=== PATIENT | male | born 1980 | race Caucasian/White ===

== ENCOUNTER → 2016-08-16 | Outpatient (REF) | payer BC ==
[~2016-08-16] MED LIST: AMBI10TA OR; MECL-68 PO; SIMV20TA2 OR; SING10TA31 OR; veramyst
[2016-08-16 11:40] LABS: ALBUMIN 4.2 GM/DL (3.2-5.2); ALBUMIN/GLOBULIN RATIO 1.35 (1.00-1.93); ALKALINE PHOSPHATASE 93 U/L (45-117); ALT/SGPT 48 U/L (12-78); ANION GAP 5 MEQ/L (8-16); AST/SGOT 28 U/L (15-37); BILIRUBIN,TOTAL 0.6 MG/DL (0.2-1.0); BLOOD UREA NITROGEN 14 MG/DL (7-18); CALCIUM LEVEL 9.4 MG/DL (8.5-10.1); CARBON DIOXIDE LEVEL 34 MEQ/L (21-32); CHLORIDE LEVEL 105 MEQ/L (98-107); CHOLESTEROL LEVEL 206 MG/DL (<200); CREATININE FOR GFR 1.02 MG/DL (0.70-1.30); GLOMERULAR FILTRATION RATE > 60.0 (>60); GLUCOSE, FASTING 86 MG/DL (70-105); POTASSIUM SERUM 4.7 MEQ/L (3.5-5.1); SODIUM LEVEL 144 MEQ/L (136-145); TOTAL PROTEIN 7.3 GM/DL (6.4-8.2); TRIGLYCERIDES LEVEL 94 MG/DL (<150)
== END ==
LOC: M SFHCCLAY 07:09
PROVIDERS: ATTEND Family Medicine
DX: E78.2 Mixed hyperlipidemia (principal)

== ENCOUNTER → 2017-08-24 | Outpatient (REF) | payer BC ==
[2017-08-24 14:13] LABS: ALBUMIN 4.2 GM/DL (3.2-5.2); ALBUMIN/GLOBULIN RATIO 1.31 (1.00-1.93); ALKALINE PHOSPHATASE 77 U/L (45-117); ALT/SGPT 48 U/L (12-78); ANION GAP 4 MEQ/L (8-16); AST/SGOT 24 U/L (7-37); BILIRUBIN,TOTAL 0.6 MG/DL (0.2-1.0); BLOOD UREA NITROGEN 18 MG/DL (7-18); CALCIUM LEVEL 9.4 MG/DL (8.5-10.1); CARBON DIOXIDE LEVEL 34 MEQ/L (21-32); CHLORIDE LEVEL 103 MEQ/L (98-107); CHOLESTEROL LEVEL 166 MG/DL (<200); CHOLESTEROL RISK RATIO 3.772 (<5); CREATININE FOR GFR 0.97 MG/DL (0.70-1.30); GLOMERULAR FILTRATION RATE > 60.0 (>60); GLUCOSE, FASTING 83 MG/DL (70-105); HDL CHOLESTEROL 44 MG/DL (>40); LDL CHOLESTEROL 101.4 MG/DL (<100); NON-HDL-C 122 MG/DL; POTASSIUM SERUM 4.9 MEQ/L (3.5-5.1); SODIUM LEVEL 141 MEQ/L (136-145); TOTAL PROTEIN 7.4 GM/DL (6.4-8.2); TRIGLYCERIDES LEVEL 103 MG/DL (<150)
== END ==
LOC: M SFHCLERA 07:41
DX: E78.2 Mixed hyperlipidemia (principal)
CPT/HCPCS: 80053

== ENCOUNTER → 2018-08-30 | Outpatient (REF) | payer BC ==
[2018-08-30 12:36] LABS: ALBUMIN 4.3 GM/DL (3.2-5.2); ALT/SGPT 42 U/L (12-78); BILIRUBIN,TOTAL 0.6 MG/DL (0.2-1.0); BLOOD UREA NITROGEN 16 MG/DL (7-18); CARBON DIOXIDE LEVEL 31 MEQ/L (21-32); CHLORIDE LEVEL 103 MEQ/L (98-107); CHOLESTEROL LEVEL 208 MG/DL (<200); CHOLESTEROL RISK RATIO 3.525 (<5); CREATININE FOR GFR 0.98 MG/DL (0.70-1.30); GLOMERULAR FILTRATION RATE > 60.0 (>60); GLUCOSE, FASTING 85 MG/DL (70-100); HDL CHOLESTEROL 59 MG/DL (>40); LDL CHOLESTEROL 133 MG/DL (<100); NON-HDL-C 149 MG/DL; POTASSIUM SERUM 4.1 MEQ/L (3.5-5.1); SODIUM LEVEL 140 MEQ/L (136-145); TOTAL PROTEIN 7.4 GM/DL (6.4-8.2); TRIGLYCERIDES LEVEL 81 MG/DL (<150)
== END ==
LOC: M SFHCCLAY 07:16
PROVIDERS: ATTEND Family Medicine
DX: E78.2 Mixed hyperlipidemia (principal)

== ENCOUNTER → 2018-11-25 | Outpatient (REF) | payer BC | LOC: M LAB REF 20:38 | PROVIDERS: ATTEND Otolaryngology | DX: L72.0 Epidermal cyst (principal) ==

== ENCOUNTER → 2019-02-04 | Outpatient (CLI) | payer BC ==
--- NOTE | 2019-02-04 08:27 | REP ---
Clinical: Epigastric pain. Technique: Real time sheppard scale and color evaluation using curved array transducer. Findings: Liver is relatively normal in contour and parenchymal echogenicity. There is a 2.6 x 2.0 x 2.0 cm hyperechoic mass along the posterior right hepatic lobe suggesting hemangioma. Pancreas is normal in appearance and echotexture. Gallbladder includes 4.6 mm echogenic focus along the anterior wall without shadowing suggesting small polyp. No gallbladder wall thickening, gallstones, or pericholecystic fluid is appreciated. No biliary ductal dilatation is appreciated and the common bile duct measures 2.1 mm diameter. Right kidney is normal in reniform shape without hydronephrosis and measures 11.9 x 5.5 x 3.6 cm. No ascites in the visualized right upper quadrant. Impression: 1. Suspected small 4.6 mm benign appearing gallbladder polyp. 2. 2.6 cm presumed hemangioma in the right lobe of the liver. Consider pre and postcontrast CT of the abdomen for confirmation if necessary. Electronically Signed by Jarrod Matthew MD 02/04/2019 08:19 A
== END ==
LOC: M RAD 07:06
PROVIDERS: ATTEND Family Medicine
DX: R10.13 Epigastric pain (principal); K82.8 Other specified diseases of gallbladder; K76.89 Other specified diseases of liver

== ENCOUNTER → 2019-02-18 | Outpatient (CLI) | payer BC ==
[~2019-02-18] MED LIST changes: +GASTROGRAFIN SOLUTION 30ML (Q9963) As Ordered ONE; +ISOVUE-370 76% 100ML VIAL (Q9967) As Ordered ONE; -MECL-68 PO; +MECL1TAB31 PO
--- NOTE | 2019-02-18 19:43 | REP ---
CT ABDOMEN AND PELVIS WITH ORAL AND IV CONTRAST, CT ABDOMEN WITHOUT IV CONTRAST: TECHNIQUE: Axial noncontrast images through the abdomen followed by contrast-enhanced images through the abdomen and pelvis using 100 mL Isovue 370 intravenous contrast material, with coronal and sagittal reformations. Visualized lung bases are clear. The liver demonstrates a nodule in the posterior segment of right lobe at the site of the hyperechoic nodule by ultrasound 02/04/2019. This demonstrates delayed peripheral nodule enhancement with gradual filling in of contrast consistent with a benign hemangioma. No other liver is seen. Spleen, adrenals, pancreas and kidneys are unremarkable. There is no hydronephrosis. There is no abdominal aortic aneurysm. There is no adenopathy. There is no free air or free fluid. No bowel wall thickening is seen. The patient has had a prior appendectomy. No pelvic mass is seen. Urinary bladder is mild to moderately distended and grossly unremarkable. IMPRESSION: The nodule in the posterior right lobe of the liver seen by ultrasound corresponds to a hemangioma by CT. No other abnormalities are detected. Electronically Signed by Danilo Haile MD 02/20/2019 11:36 A
== END ==
LOC: M RAD 16:04
PROVIDERS: ATTEND Family Medicine
DX: R93.2 Abnormal findings on diagnostic imaging of liver and biliary tract (principal); R10.13 Epigastric pain; D18.03 Hemangioma of intra-abdominal structures
CPT/HCPCS: 74178; Q9963; Q9967

== ENCOUNTER → 2019-02-26 | Outpatient (REF) | payer BC ==
[~2019-02-26] MED LIST changes: -GASTROGRAFIN SOLUTION 30ML (Q9963) As Ordered ONE; -ISOVUE-370 76% 100ML VIAL (Q9967) As Ordered ONE; +MECL-68 PO; -MECL1TAB31 PO
[2019-02-26 16:47] LABS: ALBUMIN 4.2 GM/DL (3.2-5.2); ALT/SGPT 33 U/L (12-78); AMYLASE 73 U/L (25-115); BILIRUBIN,TOTAL 0.3 MG/DL (0.2-1.0); BLOOD UREA NITROGEN 12 MG/DL (7-18); CALCIUM LEVEL 9.4 MG/DL (8.5-10.1); CARBON DIOXIDE LEVEL 31 MEQ/L (21-32); CHLORIDE LEVEL 106 MEQ/L (98-107); CREATININE FOR GFR 0.95 MG/DL (0.70-1.30); GLOMERULAR FILTRATION RATE > 60.0 (>60); GLUCOSE, FASTING 90 MG/DL (70-100); LIPASE 114 U/L (73-393); POTASSIUM SERUM 4.2 MEQ/L (3.5-5.1); SODIUM LEVEL 143 MEQ/L (136-145); TOTAL PROTEIN 7.3 GM/DL (6.4-8.2)
[2019-02-26 16:50] LABS: BASO % 0.7 % (0.0-1.0); EOS # 0.2 10^3/uL (0.0-0.50); EOS % 3.2 % (0.0-3.0); HEMATOCRIT 44.6 % (42.0-52.0); HEMOGLOBIN 15.3 g/dl (13.5-17.5); LYMPH # 1.7 10^3/uL (1.5-4.5); LYMPH % 29.7 % (24.0-44.0); MEAN CORPUSCULAR HEMOGLOBIN 29.9 pg (27.0-33.0); MEAN CORPUSCULAR HGB CONC 34.3 g/dl (32.0-36.5); MEAN CORPUSCULAR VOLUME 87.3 fl (80.0-96.0); MONO # 0.3 10^3/uL (0.0-0.8); MONO % 5.7 % (0.0-5.0); NEUTROPHILS # 3.4 10^3/uL (1.8-7.7); NEUTROPHILS % 60.5 % (36.0-66.0); PLATELET COUNT, AUTOMATED 190 10^3/uL (150-450); RED BLOOD COUNT 5.11 10^6/uL (4.30-6.10); WHITE BLOOD COUNT 5.7 10^3/uL (4.0-10.0)
== END ==
LOC: M SFHCCLAY 12:10
PROVIDERS: ATTEND Family Medicine
DX: R10.13 Epigastric pain (principal)

== ENCOUNTER → 2019-03-06 | Outpatient (CLI) | payer BC ==
[~2019-03-06] MED LIST changes: +E-Z-GAS II EFFERVESCENT PACKET (SODIUM BICARB./CITRIC ACID/SIMETHICONE) As Ordered ONE; +E-Z-HD 98% w/w 340GM SUSP BTL As Ordered ONE; +E-Z-PAQUE 96% w/w SUSP 176GM BTL As Ordered ONE
--- NOTE | 2019-03-06 17:11 | REP ---
UPPER GI AIR CONTRAST AND SMALL BOWEL FOLLOW THROUGH The procedure was performed under the direct supervision of Dr. Olsen. The images were reviewed with Dr. 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 The intestinal gas pattern is non-specific. Liquid barium and gas producing crystals were given in the erect position as well as liquid barium in the prone oblique position in order to perform a double contrast upper GI examination. Additionally liquid barium was given at the end of the examination in order to perform a small bowel follow through. The oral and pharyngeal stages of deglutition are unremarkable. Esophageal transport is prompt and efficient and there is no esophagitis, stricture, mucosal ring or hiatal hernia. There is gastroesophageal reflux demonstrated to the level of the thoracic inlet. The stomach swain are normally outlined . The rugal folds are smooth and regular. There is no gastritis neoplasm or ulcer disease. The duodenal swain are normally outlined . The mucosal folds are smooth and regular. There is no duodenitis pancreatitis peptic ulcer disease or neoplasm. The visualized portion of the proximal small bowel appears normal in course and caliber. The barium column was followed through the small bowel to the terminal ileum. Small bowel transit time is approximately 90 minutes . During fluoroscopy gentle palpation shows all loops are freely movable and pliable. There are no fixed or angulated loops. The small bowel mucosal pattern is normal in course and caliber. There is no transition to suggest a partial small-bowel obstruction. Spot filming of the terminal ileum shows it to be unremarkable. Impression: There is gastroesophageal reflux demonstrated to the level of the thoracic inlet. Otherwise, unremarkable double contrast upper GI examination and small bowel follow-through. 2.1 minutes of fluoro time was utilized for this procedure. Reviewed by RO Sewell 03/06/2019 04:50 P Electronically Signed by Danilo Olsen MD 03/06/2019 05:02 P
== END ==
LOC: M RAD 08:08
PROVIDERS: ATTEND Family Medicine
DX: R10.13 Epigastric pain (principal)

== ENCOUNTER → 2019-08-29 | Outpatient (REF) | payer BC ==
[~2019-08-29] MED LIST changes: -E-Z-GAS II EFFERVESCENT PACKET (SODIUM BICARB./CITRIC ACID/SIMETHICONE) As Ordered ONE; -E-Z-HD 98% w/w 340GM SUSP BTL As Ordered ONE; -E-Z-PAQUE 96% w/w SUSP 176GM BTL As Ordered ONE; -MECL-68 PO; +MECL1TAB31 PO
[2019-08-29 12:09] LABS: ALT/SGPT 40 U/L (12-78); BILIRUBIN,TOTAL 0.6 MG/DL (0.2-1.0); BLOOD UREA NITROGEN 14 MG/DL (7-18); CALCIUM LEVEL 9.3 MG/DL (8.5-10.1); CARBON DIOXIDE LEVEL 34 MEQ/L (21-32); CHLORIDE LEVEL 103 MEQ/L (98-107); CHOLESTEROL LEVEL 179 MG/DL (<200); CHOLESTEROL RISK RATIO 3.729 (<5); CREATININE FOR GFR 0.98 MG/DL (0.70-1.30); GLOMERULAR FILTRATION RATE > 60.0 (>60); GLUCOSE, FASTING 82 MG/DL (70-100); HDL CHOLESTEROL 48 MG/DL (>40); LDL CHOLESTEROL 116 MG/DL (<100); NON-HDL-C 131 MG/DL; POTASSIUM SERUM 4.7 MEQ/L (3.5-5.1); SODIUM LEVEL 140 MEQ/L (136-145); TOTAL PROTEIN 6.9 GM/DL (6.4-8.2); TRIGLYCERIDES LEVEL 75 MG/DL (<150)
== END ==
LOC: M SFHCLERA 07:37
PROVIDERS: ATTEND Family Medicine
DX: E78.2 Mixed hyperlipidemia (principal)

== ENCOUNTER → 2020-09-10 | Outpatient (REF) | payer BC ==
[2020-09-10 11:48] LABS: ALBUMIN 4.2 GM/DL (3.2-5.2); ALT/SGPT 57 U/L (12-78); BILIRUBIN,TOTAL 0.6 MG/DL (0.2-1.0); BLOOD UREA NITROGEN 19 MG/DL (7-18); CALCIUM LEVEL 9.5 MG/DL (8.5-10.1); CARBON DIOXIDE LEVEL 35 MEQ/L (21-32); CHLORIDE LEVEL 103 MEQ/L (98-107); CHOLESTEROL LEVEL 212 MG/DL (<200); CREATININE FOR GFR 1.02 MG/DL (0.70-1.30); GLOMERULAR FILTRATION RATE > 60.0 (>60); GLUCOSE, FASTING 86 MG/DL (70-100); HDL CHOLESTEROL 53 MG/DL (>40); LDL CHOLESTEROL 143 MG/DL (<100); NON-HDL-C 159 MG/DL; POTASSIUM SERUM 4.7 MEQ/L (3.5-5.1); SODIUM LEVEL 141 MEQ/L (136-145); TRIGLYCERIDES LEVEL 82 MG/DL (<150)
== END ==
LOC: M SFHCCLAY 07:22
PROVIDERS: ATTEND Family Medicine
DX: E78.2 Mixed hyperlipidemia (principal)

== ENCOUNTER 2020-10-10 20:31 | Inpatient (IN) | payer BC ==
[~2020-10-10] VITALS: Ht 182.9 cm; Wt 77.5 kg
[2020-10-10] VITALS (15 sets, daily range): BP systolic 140–170; BP diastolic 71–105
[2020-10-10] MEDS ORDERED: PANT40TA29 PO (20:44)
--- NOTE | 2020-10-10 20:59 | REPVR ---
PROCEDURE INFORMATION: Exam: XR Chest Exam date and time: 10/10/2020 8:52 PM Age: 40 years old Clinical indication: Shortness of breath; Chest pain; Additional info: SOB TECHNIQUE: Imaging protocol: XR of the chest Views: 2 views. COMPARISON: No relevant prior studies available. FINDINGS: Lungs: Mild left base secondary atelectasis. Pleural spaces: Moderate left pneumothorax. The lung is retracted approximately the 6.3 cm from the osseous apex of the left hemithorax. Heart/Mediastinum: Unremarkable. No cardiomegaly. Bones/joints: Slight anterior wedge configuration of several lower thoracic segments which appear to be chronic. IMPRESSION: 1. Moderate left pneumothorax which is estimated at 25-30% with secondary left base atelectasis. 2. Otherwise negative chest. Electronically signed by: Paul Puente On 10/10/2020 20:59:45 PM
[2020-10-10] MEDS ORDERED: SIMV10TA21 PO (21:03)
[2020-10-10] MEDS ORDERED: NORCO, ANEXSIA 5/325MG TABLET (HYDROcodone/ACETAMINOPHEN) PO PRN (21:10)
[2020-10-10] MEDS ORDERED: BISACODYL 10 MG SUPP PR PRN (21:10)
[2020-10-10] MEDS ORDERED: KCL 20MEQ IN D5/NS 1000ML 1,000 ML IV SCH (21:10)
[2020-10-10] MEDS ORDERED: LEVALBUTEROL 1.25 MG/0.5 ML CONCENTRATE NEB NEB PRN (21:10)
[2020-10-10 21:14] LABS: BASO # 0.1 10^3/uL (0.0-0.2); BASO % 0.8 % (0.0-1.0); EOS # 0.3 10^3/uL (0.0-0.5); EOS % 3.5 % (0.0-3.0); HEMATOCRIT 42.7 % (42.0-52.0); HEMOGLOBIN 14.6 g/dl (13.5-17.5); LYMPH # 1.9 10^3/uL (1.5-5.0); LYMPH % 26.8 % (24.0-44.0); MEAN CORPUSCULAR HEMOGLOBIN 29.6 pg (27.0-33.0); MEAN CORPUSCULAR HGB CONC 34.2 g/dl (32.0-36.5); MEAN CORPUSCULAR VOLUME 86.6 fl (80.0-96.0); MONO # 0.4 10^3/uL (0.0-0.8); MONO % 6.1 % (2.0-8.0); NEUTROPHILS # 4.4 10^3/uL (1.5-8.5); NEUTROPHILS % 62.7 % (36.0-66.0); PLATELET COUNT, AUTOMATED 177 10^3/uL (150-450); RED BLOOD COUNT 4.93 10^6/uL (4.30-6.10); WHITE BLOOD COUNT 7.1 10^3/uL (4.0-10.0)
[2020-10-10] MEDS ORDERED: MIDAZOLAM INJ 2MG/2ML VIAL (J2250 PER 1MG) As Ordered ONE ×2 (21:29→21:31)
[2020-10-10] MEDS ORDERED: flumazeniL 0.5 MG/5 ML VIAL As Ordered ONE (21:33)
[2020-10-10] MEDS ORDERED: LIDOCAINE 1% MDV 20ML VIAL As Ordered ONE (21:34)
[2020-10-10 21:37] LABS: ABG HCO3 26.1 MEQ/L (22.0-26.0); ABG O2 SATURATION 95.5 % (95.0-99.0); ABG PARTIAL PRESSURE CO2 39.1 mmHg (35.0-45.0); ABG PARTIAL PRESSURE O2 75.3 mmHg (75.0-100.0); ABG STANDARD HCO3 26.2 MEQ/L (22.0-26.0); ABG TOTAL CO2 27.3 MEQ/L (22.0-29.0); ABG pH (ARTERIAL) 7.443 UNITS (7.350-7.450)
[2020-10-10 21:44] LABS: ALBUMIN 4.1 GM/DL (3.2-5.2); ALT/SGPT 44 U/L (12-78); BILIRUBIN,DIRECT 0.1 MG/DL (0.0-0.2); BILIRUBIN,TOTAL 0.5 MG/DL (0.2-1.0); BLOOD UREA NITROGEN 20 MG/DL (7-18); CARBON DIOXIDE LEVEL 30 MEQ/L (21-32); CHLORIDE LEVEL 104 MEQ/L (98-107); CREATININE FOR GFR 1.21 MG/DL (0.70-1.30); GLOMERULAR FILTRATION RATE > 60.0 (>60); GLUCOSE, FASTING 140 MG/DL (70-100); POTASSIUM SERUM 3.6 MEQ/L (3.5-5.1); SODIUM LEVEL 140 MEQ/L (136-145); TOTAL PROTEIN 7.1 GM/DL (6.4-8.2)
[2020-10-10 21:51] LABS: RSV AMPLIFICATION NEGATIVE (NEGATIVE)
[2020-10-10] MEDS ORDERED: PILL CUTTER 1 EACH XX PRN (21:55)
--- NOTE | 2020-10-10 22:40 | REPVR ---
PROCEDURE INFORMATION: Exam: XR Chest Exam date and time: 10/10/2020 10:32 PM Age: 40 years old Clinical indication: Device placement; Chest tube; Additional info: Post chest tube placement TECHNIQUE: Imaging protocol: XR of the chest Views: 1 view. COMPARISON: CR Chest, 2 view PA, Lat 10/10/2020 8:43 PM FINDINGS: Tubes, catheters and devices: Interval placement of a left chest tube into the left apex. Lungs: Persistent mild left base atelectasis which may be slightly decreased. Pleural spaces: Resolution of left pneumothorax since the prior study. Heart/Mediastinum: Unremarkable. No cardiomegaly. Bones/joints: Unremarkable. IMPRESSION: 1. Interval placement of a left chest tube since a study done earlier in the day with resolution of left pneumothorax. 2. Mild left base atelectasis which may be slightly decreased since the prior study. Electronically signed by: Paul Puente On 10/10/2020 22:40:15 PM
[2020-10-10] MEDS: PERCOCET 5MG/325MG TAB PO PRN (22:58)
[2020-10-10] MEDS: SIMVASTATIN 10 MG TAB PO SCH (22:59)
[2020-10-10] MEDS: HEPARIN SOD (PORCINE) 5000UNITS/ML 1ML VIAL/SYRINGE SC SCH (23:01)
[2020-10-10] MEDS ORDERED: LIDOCAINE 1% MDV 20ML VIAL SC ONE (23:25)
[2020-10-10] MEDS ORDERED: MIDAZOLAM INJ 2MG/2ML VIAL (J2250 PER 1MG) IV ONE ×2 (23:25)
[2020-10-11] VITALS: BP 135/73
[2020-10-11] MEDS: KETOROLAC 30 MG/ML 1ML VIAL IV SCH ×4 (00:26→18:06)
[2020-10-11] MEDS: LEVALBUTEROL 1.25 MG/0.5 ML CONCENTRATE NEB NEB SCH ×4 (02:06→19:21)
[2020-10-11 04:00] VITALS: BP 115/67
[2020-10-11 05:41] LABS: BASO # 0.1 10^3/uL (0.0-0.2); BASO % 0.7 % (0.0-1.0); EOS # 0.1 10^3/uL (0.0-0.5); EOS % 2.1 % (0.0-3.0); HEMATOCRIT 40.2 % (42.0-52.0); HEMOGLOBIN 13.6 g/dl (13.5-17.5); LYMPH # 2.3 10^3/uL (1.5-5.0); LYMPH % 33.6 % (24.0-44.0); MEAN CORPUSCULAR HEMOGLOBIN 29.6 pg (27.0-33.0); MEAN CORPUSCULAR HGB CONC 33.8 g/dl (32.0-36.5); MEAN CORPUSCULAR VOLUME 87.4 fl (80.0-96.0); MONO # 0.6 10^3/uL (0.0-0.8); MONO % 9.4 % (2.0-8.0); NEUTROPHILS # 3.6 10^3/uL (1.5-8.5); NEUTROPHILS % 54.1 % (36.0-66.0); PLATELET COUNT, AUTOMATED 168 10^3/uL (150-450); WHITE BLOOD COUNT 6.7 10^3/uL (4.0-10.0)
[2020-10-11 05:54] LABS: BLOOD UREA NITROGEN 17 MG/DL (7-18); CALCIUM LEVEL 8.9 MG/DL (8.5-10.1); CARBON DIOXIDE LEVEL 29 MEQ/L (21-32); CHLORIDE LEVEL 107 MEQ/L (98-107); CREATININE FOR GFR 0.93 MG/DL (0.70-1.30); GLOMERULAR FILTRATION RATE > 60.0 (>60); GLUCOSE, FASTING 88 MG/DL (70-100); POTASSIUM SERUM 3.8 MEQ/L (3.5-5.1); SODIUM LEVEL 142 MEQ/L (136-145)
[2020-10-11 05:55] LABS: ABG BASE EXCESS 2.8 (-2.0-2.0); ABG HCO3 27.9 MEQ/L (22.0-26.0); ABG O2 SATURATION 99.4 % (95.0-99.0); ABG PARTIAL PRESSURE CO2 45.1 mmHg (35.0-45.0); ABG PARTIAL PRESSURE O2 179.1 mmHg (75.0-100.0); ABG TOTAL CO2 29.3 MEQ/L (22.0-29.0)
[2020-10-11] MEDS: PERCOCET 5MG/325MG TAB PO PRN ×3 (06:13→22:10)
[2020-10-11 08:00] VITALS: BP 127/76
--- NOTE | 2020-10-11 08:38 | REP ---
INDICATION: after chest tube placement COMPARISON: 10/10/2020 TECHNIQUE: PA and lateral. FINDINGS: Left apical chest tube in stable position. No obvious significant residual pneumothorax is appreciated. Small elements of linear atelectasis in the left lower lung zone are suspected. No further acute consolidation or effusion. Right hemithorax is clear. Skeletal structures are intact. Mediastinum and cardiac silhouette normal. IMPRESSION: Minimal scattered linear atelectasis in the left lower lung zone. No obvious residual pneumothorax appreciated. <Electronically signed by Jarrod Matthew > 10/11/20 0816
[2020-10-11] MEDS: HEPARIN SOD (PORCINE) 5000UNITS/ML 1ML VIAL/SYRINGE SC SCH ×2 (08:56→20:25)
[2020-10-11] MEDS: DOCUSATE SODIUM 100MG CAPSULE PO SCH ×2 (08:56→20:21)
[2020-10-11] MEDS: PANTOPRAZOLE 40MG TAB (PROTONIX) PO SCH (08:56)
[2020-10-11] MEDS: MOM 30ML SUSPENSION UDC PO SCH (08:56)
--- NOTE | 2020-10-11 09:23 | REP ---
INDICATION: recurrent pneoumthx COMPARISON: None TECHNIQUE: Axial noncontrast images from the thoracic inlet to the upper abdomen with coronal and sagittal reformations. This CT examination was performed using the following dose reduction techniques: Automated exposure control, adjustment of mA and/or kv according to the patient's size, and use of iterative reconstruction technique. FINDINGS: Left-sided chest tube via anterior approach extending to the apex with small amount of subcutaneous/intramuscular emphysema surrounding the insertion site noted. No residual pneumothorax identified. Small scattered elements of lower lobe atelectasis (left greater than right) noted. No effusion. No significant nodule or mass lesion. Tracheobronchial tree is patent. No adenopathy. The mediastinum demonstrates normal thoracic aorta, pulmonary vasculature, and heart/pericardium. Osseous structures are intact. Limited upper abdomen demonstrates normal bilateral adrenal glands. IMPRESSION: 1. No residual pneumothorax appreciated. 2. Small amounts of lower lobe atelectasis (left greater than right). <Electronically signed by Jarrod Matthew > 10/11/20 0919
--- NOTE | 2020-10-11 11:43 | HPE ---
HISTORY AND PHYSICAL DATE OF ADMISSION: 10/10/2020 REASON FOR ADMISSION: The patient is seen at the request of Dr. Gerardo of the emergency room for acute shortness of breath, chest pain, and a chest x-ray showing a left-sided pneumothorax. HISTORY OF PRESENT ILLNESS: The patient is a 40-year-old white male who was playing soccer today and was knocked to the ground. He suddenly felt chest pain and shortly thereafter shortness of breath. He has a significant history of having had two other pneumothoraces on this side, and he stated that the pain and the shortness of breath felt just like the others that he has had in 2012 and 2016. Prior to the incident, there was no coughing. No fever, chills, or sweats. No sputum production and no chest pain. There was no dysphagia or shortness of breath. PAST MEDICAL HISTORY: 1. Hyperlipidemia. 2. Gastroesophageal reflux disease. PAST SURGICAL HISTORY: 1. Remote appendectomy. 2. Knee arthroscopy. HOME MEDICATIONS: 1. Pantoprazole 40 mg q. day. 2. Simvastatin 5 mg q. h.s. TRAVEL HISTORY: He has been to [place] and [place]. No travel to the [facility] or the [facility]. EXPOSURES: He has a one dog a hameed lab and a cat at home. No known exposure to tuberculosis. HABITS: Does not smoke. Drinks very occasionally. No illicit drugs. 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 FAMILY HISTORY: Not pertinent to the acute situation. REVIEW OF SYSTEMS: Constitutional: See HPI. Without fevers, chills, sweats, or night sweats. Without weight loss. Eyes without diplopia, without amaurosis fugax, and without prior jaundice. He does wear corrective lenses. Mouth has his own teeth. Nose without epistaxis. Respiratory: See HPI. Cardiac: Without prior myocardial infarctions, leg edema, intermittent claudication, or history of prior myocardial infarctions. GI: Without nausea, vomiting, diarrhea, constipation, melena, hematochezia, hematemesis, or abdominal pain. : Without dysuria, hematuria, or prior history of renal stones. Endocrine: Without diabetes and without thyroid disease. Neurologic: Without paresthesias, paralysis, or prior seizures. Psychiatric: Without pathologic anxieties, depressions, or psychoses. PHYSICAL EXAMINATION: GENERAL APPEARANCE: Well-developed and well-nourished white male, in mild distress with pain and shortness of breath. VITAL SIGNS: Temperature is 99.1 with a heart rate of 75 in a sinus rhythm, respiratory rate of 26 without the use of accessory muscles, who is 98% saturated on room air and whose blood pressure is 152/86. EYES: Pupils equal, round, and reactive to light. Extraocular movements intact. Sclerae nonicteric. HEAD: Normocephalic. NOSE: Without deformity. MOUTH: Shows mucous membranes to pink and moist. Lips and commisures without lesions. There is no thrush. Teeth are in good repair. NECK: Supple. There is no jugular venous distention. No subcutaneous emphysema. Trachea is midline. He has 2+ carotid upstrokes without carotid bruits. There is no lymphadenopathy or thyromegaly. LUNGS: Show markedly decreased breath sounds on the left hemithorax. The right side shows normal vesicular sounds. Percussion note is full to the diaphragm on either side. There is no subcutaneous emphysema over the chest wall. CARDIAC: Without murmurs, clicks, gallops, or rubs. I cannot feel his PMI. S1, S2 are normal. ABDOMEN: Soft and nontender. Bowel sounds are positive. There is no hepatosplenomegaly and no CVA tenderness. EXTREMITIES: Show no pretibial edema. No calf tenderness. No differential swelling of the upper extremities. SKIN: Warm, dry, and perfuse without cyanosis or mottling including that of the nail beds and knees NEUROLOGIC: Shows II through XII intact. Normal gross motor and gross sensation intact. Gait was not tested. PSYCHIATRIC: Shows him to be awake, alert, and oriented x3 with appropriate mood and affect and conversational. LABORATORY DATA: His white count today is 7.1 with a hemoglobin and hematocrit of 14.6 and 42.7 respectively with a platelet count of 177,000. Differential shows 62% neutrophils, 26% lymphocytes, and 6% monocytes. There are no immature forms and no toxic granulations. Electrolytes are normal with a BUN and creatinine of 20 and 1.2, calcium of 9.0, and a glucose of 140. AST and ALT are normal. His albumin is 4.1 corresponding to the calcium above of 9.0. Blood gases show a pH of 7.44, pCO2 of 39, pO2 of 75 with a base excess of 2.0. IMAGING DATA: Chest x-ray shows a 30% pneumothorax affecting the left upper hemithorax. There is no mediastinal shift and there is no subcutaneous emphysema. Costophrenic angles are sharp and there are no infiltrates. Left lung vessels are compressed from the pneumothorax. IMPRESSION: 1. Spontaneous pneumothorax x3. 2. Hyperlipidemia. 3. Gastroesophageal reflux disease (GERD). PLAN AND DISCUSSION: This is his third pneumothorax on that side and it is time for a definitive procedure. Tomorrow I will obtain a CT scan to look at what structural defects he has. 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 We will then discuss taking him to the operating room to undertake a wedge resection of blebs and a talc pleurodesis.
--- NOTE | 2020-10-11 11:43 | RO ---
OPERATIVE NOTE DATE OF OPERATION: 10/10/2020 PREPROCEDURE DIAGNOSIS: Recurrent left pneumothorax. POSTPROCEDURE DIAGNOSIS: Recurrent left pneumothorax. PROCEDURE: Insertion of anterior-superior chest tube. SURGEON: Avelino Carrasco M.D. SURGICAL INSTRUMENT MECHANIC: None. ANESTHESIA: Moderate sedation 4 mg of Versed. DESCRIPTION OF PROCEDURE: Under satisfactory moderate sedation achieved with 4 mg of Versed, the patient was prepped and draped in the usual sterile fashion. The skin, subcutaneous tissue, and pleura were infiltrated in the first intercostal space over the second rib. Incision was made and a tunnel was created into the chest without difficulty. A #20 chest tube was placed, placed in the apex. Chest tube was secured to the chest wall with #2 Tevdek suture and connected to the Pleur-Evac. The patient tolerated the procedure well and a chest x-ray is pending.
--- NOTE | 2020-10-11 11:48 | IPN ---
PROGRESS NOTE DATE: 10/11/2020 SUBJECTIVE: Mr. Koenig had a difficult night last night with pain control. It is better this morning. His lungs fully expand to the chest wall. I had a discussion with him regarding a definitive procedure discussed below. OBJECTIVE: VITAL SIGNS: Show a T-max of 98.4 with a heart rate that ranges between 58 and 60. He did have a 3 second pause with a bradycardia of 32 last night. This was after a bout of pain. Respiratory rate of 15 to 19 without the use of accessory muscles who is 98% saturated on 4 liters nasal cannula and whose blood pressure is ranging between 135/73 to 115/67. INTAKE AND OUTPUT: Over the past 24 hours has been recorded as 350 in and nothing out. Just this morning, he put out approximately 750 mL in urine. Chest tube has had 5 mL out and his weight today is 79.4 kg compared to 79.5 kg yesterday. RESPIRATORY: He has equal breath sounds on either side without wheezes, rhonchi, or rales. Percussion notes are full to the diaphragm. CARDIAC: Without murmurs, clicks, gallops, or rubs. I cannot feel his PMI. S1 and S2 are normal. ABDOMEN: Soft and nontender. Bowel sounds are positive. There is no hepatomegaly. No CVA tenderness. EXTREMITIES: Show no pretibial edema. No calf tenderness. No differential swelling of the upper extremities. SKIN: Warm, dry, and perfused without cyanosis or mottling, including that of the nail beds and knees. NECK: Supple. There is no jugular venous distention. No subcutaneous emphysema. Trachea is midline. MOUTH: Shows the mucous membranes to be pink and moist. Lips and commisures are without lesions and no thrush. EYES: Show his pupils equal and reactive. Extraocular movements are intact. Sclerae nonicteric. NEUROLOGIC: Shows II through XII intact. Normal gross motor, gross sensation intact. Gait is not tested. PSYCHIATRIC: Shows him to be awake, alert, and oriented x3 with appropriate mood and affect and conversational. LABORATORY DATA: His white count today is 6.7 with a hemoglobin and hematocrit of 13.6 and 40.2, essentially unchanged from yesterday, with a platelet count of 168,000 and stable. Differential shows 54% neutrophils, 33% lymphocytes, and 9% monocytes. There are no immature forms and no toxic granulations. His electrolytes are normal with a BUN and creatinine of 17 and 0.93, glucose of 88, and a calcium of 8.9. Blood gases today show a pH of 7.41 with a pCO2 of 45, pO2 of 179 with a base excess of 2.8. He is COVID negative. IMAGING DATA: His chest x-ray today shows his lungs fully expand to the chest wall. Chest tube is in good position at the apex. I did obtain a CT scan of him today and it confirms that he has small blebs in the left upper lobe. Lungs again fully expand to the chest wall. I see no other masses. IMPRESSION: 1. Spontaneous pneumothorax third time. 2. Congenital bleb disease. 3. Gastroesophageal reflux disease (GERD). 4. Hyperlipidemia. PLAN AND DISCUSSION: I have had a thorough discussion with him regarding doing a wedge resection and talc pleurodesis using VATS techniques. He understands and is willing to proceed. We will therefore try to place him on the schedule for tomorrow. He understands the associated risks including bleeding, infection, and mortality.
[2020-10-11 12:00] VITALS: BP 143/80
[2020-10-11 16:00] VITALS: BP 118/66
[2020-10-11 20:00] VITALS: BP 134/74
[2020-10-11] MEDS: SIMVASTATIN 10 MG TAB PO SCH (20:25)
--- NOTE | 2020-10-11 21:23 | CR ---
CONSULTATION DATE OF CONSULTATION: 10/11/2020 REFERRING PHYSICIAN: Avelino Carrasco M.D. INDICATION: Bradycardia, pause. HISTORY OF PRESENT ILLNESS: Mr. Koenig is a very pleasant, 40-year-old man who was admitted essentially yesterday with pneumothorax that occurred during playing a soccer game. He was found to have left-sided pneumothorax in the emergency room. This is his third recurrence, he had similar presentations in the past. Chest tube was placed by Dr. Carrasco and he was admitted to telemetry. His hospital stay has been unremarkable. During nighttime hours, he was quite bradycardic with heart rate in the 40s, sinus bradycardia, and then shortly after 6 a.m. this morning he had a 3.6 second pause. Looking at the telemetry strips, he was bradycardic to start with and then had one junctional beat followed by a pause. There was a single occurrence and there has not been any recurrence since. At his baseline, patient is a very athletic individual, he has no cardiac history, there is no history of syncope or near syncope, he denies any episodes of chest discomfort short of presentation with pneumothorax. PAST MEDICAL HISTORY: 1. Recurrent pneumothorax as above. 2. Hypercholesterolemia. 3. Gastroesophageal reflux disease (GERD). SURGICAL HISTORY: 1. Appendectomy. 2. Knee arthroscopy. 3. Chest tube placements. FAMILY HISTORY: His father and grandfather had very high cholesterol. Patient does not recall any history of early coronary artery disease in his family. SOCIAL HISTORY: Patient is . He is a physical therapist. Does not smoke and never did. No drug use. ALLERGIES: No allergies. REVIEW OF SYSTEMS: He denies any recent fever, chills, nausea, vomiting, diarrhea. No history of cardiac evaluation, chest pain, syncope, near syncope. No history of bleeding. Otherwise negative. PHYSICAL EXAMINATION: Mr. Koenig is a middle-aged man who appears to be of tall stature, of athletic build. I do not appreciate any distress. He looks quite comfortable. There is a chest tube in his left anterior chest. Vital signs: Blood pressure 118/66, heart rate has been mostly 50s, sinus rhythm, I did not find any ectopy on telemetry, he is afebrile, saturation 99% on 2 liters of oxygen by nasal cannula. His weight was recorded 79.4 kg. Jugular venous pulse (JVP) is not high. Lungs are clear bilaterally. Heart exam reveals regular rhythm, somewhat bradycardic, no gallop, rub, or murmur is appreciated. Abdomen soft, nontender. Extremities free of edema, good peripheral pulses. Neurologically he is intact. LABORATORY DATA: He has normal CBC and normal basic metabolic panel. Chest x-ray was indicative of pneumothorax and eventually revealed proper position of the chest tube. CT scan of the chest did reveal no residual pneumothorax and minimal atelectasis. No EKG was performed. ASSESSMENT AND PLAN: Mr. Koenig is a 40-year-old man who is essentially healthy but for history of hypercholesterolemia, gastroesophageal reflux disease (GERD), and recurrent left-sided pneumothorax. The plan is to take him to the operating room tomorrow with plan for pleurodesis. I was asked to see him because of the pause that he had last night. It does not appear overly worrisome, it very likely was bradycardia in the setting of deep phases of sleep. The single pause was likely caused by very high vagal tone at that point. He is active and otherwise asymptomatic, there is no history of syncope. I will obtain a 12-lead EKG, but provided it does not reveal any gross abnormalities, which I fully expect, I think he can proceed with surgery and I do not believe there is a need for any further cardiac evaluation unless there are recurrent events of a more serious nature.
[2020-10-12] VITALS (10 sets, daily range): BP systolic 109–142; BP diastolic 56–78
[2020-10-12] MEDS: KETOROLAC 30 MG/ML 1ML VIAL IV SCH ×4 (00:10→18:06)
[2020-10-12] MEDS: LEVALBUTEROL 1.25 MG/0.5 ML CONCENTRATE NEB NEB SCH ×4 (01:24→20:22)
[2020-10-12] MEDS: PERCOCET 5MG/325MG TAB PO PRN (04:11)
[2020-10-12 05:09] LABS: BASO # 0.1 10^3/uL (0.0-0.2); EOS # 0.3 10^3/uL (0.0-0.5); EOS % 4.9 % (0.0-3.0); HEMATOCRIT 40.3 % (42.0-52.0); HEMOGLOBIN 13.1 g/dl (13.5-17.5); LYMPH # 2.5 10^3/uL (1.5-5.0); LYMPH % 43.4 % (24.0-44.0); MEAN CORPUSCULAR HEMOGLOBIN 29.4 pg (27.0-33.0); MEAN CORPUSCULAR HGB CONC 32.5 g/dl (32.0-36.5); MEAN CORPUSCULAR VOLUME 90.4 fl (80.0-96.0); MONO # 0.4 10^3/uL (0.0-0.8); NEUTROPHILS # 2.5 10^3/uL (1.5-8.5); NEUTROPHILS % 43.5 % (36.0-66.0); PLATELET COUNT, AUTOMATED 160 10^3/uL (150-450); RED BLOOD COUNT 4.46 10^6/uL (4.30-6.10); WHITE BLOOD COUNT 5.7 10^3/uL (4.0-10.0)
[2020-10-12 05:33] LABS: BLOOD UREA NITROGEN 12 MG/DL (7-18); CALCIUM LEVEL 8.2 MG/DL (8.5-10.1); CARBON DIOXIDE LEVEL 31 MEQ/L (21-32); CHLORIDE LEVEL 108 MEQ/L (98-107); CREATININE FOR GFR 0.98 MG/DL (0.70-1.30); GLOMERULAR FILTRATION RATE > 60.0 (>60); GLUCOSE, FASTING 113 MG/DL (70-100); POTASSIUM SERUM 3.8 MEQ/L (3.5-5.1); SODIUM LEVEL 143 MEQ/L (136-145)
[2020-10-12] MEDS ORDERED: MUPIROCIN 2% OINT 22 GM TUBE TOP ONE (06:00)
[2020-10-12] MEDS ORDERED: fentaNYL 100 MCG/2 ML INJECTION (J3010) IV SCH (06:00)
[2020-10-12] MEDS ORDERED: ceFAZolin SOD 2 GM in IV 1 EA IV ONE (06:00)
[2020-10-12] MEDS ORDERED: CETACAINE SPRAY 5GM As Ordered ONE (07:42)
[2020-10-12] MEDS ORDERED: BUPIVACAINE HCL 0.5% 10ML VIAL As Ordered ONE (07:42)
[2020-10-12] MEDS ORDERED: BUPIVACAINE LIPOSOME/PF 1.3% 20ML VIAL (13.3MG/ML)(EXPAREL)(C9290 PER1MG) As Ordered ONE (07:43)
--- NOTE | 2020-10-12 08:01 | REP ---
INDICATION: after chest tube placement COMPARISON: 10/11/2020 TECHNIQUE: PA and lateral. FINDINGS: Left apical chest tube in stable position. No obvious residual pneumothorax. The mediastinum and cardiac silhouette are normal. The lung eller demonstrate trace basilar atelectasis. The skeletal structures are intact and normal. IMPRESSION: No obvious pneumothorax. Trace atelectasis. No obvious new acute process appreciated. <Electronically signed by Jarrod Matthew > 10/12/20 [id number]
[2020-10-12] MEDS ORDERED: fentaNYL 100 MCG/2 ML INJECTION (J3010) As Ordered ONE (08:15)
[2020-10-12] MEDS ORDERED: MIDAZOLAM INJ 2MG/2ML VIAL (J2250 PER 1MG) As Ordered ONE ×2 (08:15→08:29)
[2020-10-12] MEDS: MIDAZOLAM INJ 2MG/2ML VIAL (J2250 PER 1MG) IV SCH ×2 (08:24→08:29)
[2020-10-12] MEDS ORDERED: ROCURONIUM BROMIDE 50 MG/5 ML VIAL As Ordered ONE ×2 (08:28→10:21)
[2020-10-12] MEDS ORDERED: fentaNYL 250 MCG/5 ML INJECTION (J3010) As Ordered ONE (08:29)
[2020-10-12] MEDS ORDERED: dexameTHASONE 4 MG/ML 1ML VIAL (J1100 PER 1MG) As Ordered ONE (08:30)
[2020-10-12] MEDS ORDERED: KETAMINE HCL 200 MG/20 ML VIAL As Ordered ONE (08:30)
[2020-10-12] MEDS ORDERED: ONDANSETRON 4MG/2ML VIAL As Ordered ONE (08:31)
[2020-10-12] MEDS ORDERED: propofoL 200 MG/20 ML VIAL As Ordered ONE (08:31)
[2020-10-12] MEDS ORDERED: LIDOCAINE 2% 100MG/5ML SDV (FOR ANES.) As Ordered ONE (08:31)
[2020-10-12] MEDS ORDERED: BUPIVACAINE HCL 0.25% 30ML VIAL As Ordered ONE (08:36)
--- NOTE | 2020-10-12 08:42 | ECGEPIP ---
[facility] Test Date: 2020-10-12 Pat Name: JOAN BLACK Department: Room: [place] [id number] Gender: Male Crisis Manager: julissa : 1980 Requested By: Brayan Nicole Order Number: [id number] Reading MD: Gay Nunn Measurements Intervals [place] Rate: 60 P: 4 MT: 172 QRS: 8 QRSD: 104 T: 22 QT: 430 QTc: 430 Interpretive Statements Normal sinus rhythm NORMAL EXCEPT SUBTLE U WAVES NO PRIOR Electronically Signed on 10-12-2020 8:42:27 EST by Gay Nunn
[2020-10-12] MEDS ORDERED: STERILE TALC POWDER 3GM VIAL As Ordered ONE (08:47)
[2020-10-12] MEDS ORDERED: TALCAIR POWDER BLOWER (CAN ONLY BE USED WITH 3GM TALC VIAL) XX ONE (08:47)
[2020-10-12] MEDS ORDERED: NALOXONE INJ 0.4MG/1ML VIAL (J2310 PER 1MG) IV PRN (09:00)
[2020-10-12] MEDS ORDERED: EPIDURAL/PCA KEYS XX PRN (09:00)
[2020-10-12] MEDS ORDERED: WALLBOXKEY XX PRN (09:00)
[2020-10-12] MEDS ORDERED: ONDANSETRON 4MG/2ML VIAL IV PRN ×2 (09:00→11:55)
[2020-10-12] MEDS ORDERED: diphenhydrAMINE 50MG/ML VIAL (J1200) IV PRN (09:00)
[2020-10-12] MEDS ORDERED: MUPIROCIN 2% OINT 22 GM TUBE As Ordered ONE (09:18)
[2020-10-12] MEDS ORDERED: ceFAZolin 2 GM/D5W 50 ML IV BAG (J0690 PER 500MG) As Ordered ONE (09:18)
[2020-10-12] MEDS ORDERED: SUGAMMADEX SODIUM 500 MG/5 ML VIAL (BRIDION) As Ordered ONE (10:19)
[2020-10-12] MEDS ORDERED: ACETAMINOPHEN 1000MG 100ML IV BTL (OFIRMEV) (J0131 PER 10MG) As Ordered ONE (10:19)
[2020-10-12] MEDS ORDERED: KETOROLAC 60MG 2ML VIAL As Ordered ONE (10:19)
[2020-10-12] MEDS ORDERED: ePHEDrine SULFATE 25 MG/5 ML(5MG/ML) SYRINGE As Ordered ONE (10:29)
[2020-10-12] MEDS ORDERED: FENTANYL 2MCG/ML BUPIVACAINE 0.0625% NACL 250ML IV BAG As Ordered ONE (11:33)
--- NOTE | 2020-10-12 11:45 | REP ---
INDICATION: PNEUMOTHX COMPARISON: 10/12/2020 at 7:31 a.m. TECHNIQUE: Portable AP view of the chest FINDINGS: Current examination now demonstrates 2 left-sided chest tubes with associated subcutaneous emphysema along the left lateral chest wall and thoracic inlet. No obvious pneumothorax. No obvious focal consolidation or effusion. Right hemithorax is clear. Mediastinum and cardiac silhouette are grossly normal. IMPRESSION: Two left-sided chest tubes and subcutaneous emphysema now noted. No focal consolidation, effusion, or obvious residual pneumothorax. <Electronically signed by Jarrod Matthew > 10/12/20 1144
[2020-10-12 11:46] LABS: ABG O2 SATURATION 99.7 % (95.0-99.0)
[2020-10-12 11:48] LABS: ABG BASE EXCESS 0.9 (-2.0-2.0); ABG HCO3 28.5 MEQ/L (22.0-26.0); ABG PARTIAL PRESSURE CO2 58.4 mmHg (35.0-45.0); ABG PARTIAL PRESSURE O2 253.1 mmHg (75.0-100.0); ABG STANDARD HCO3 25.3 MEQ/L (22.0-26.0); ABG TOTAL CO2 30.3 MEQ/L (22.0-29.0); ABG pH (ARTERIAL) 7.307 UNITS (7.350-7.450)
[2020-10-12 11:50] LABS: BASO % 0.3 % (0.0-1.0); EOS # 0.1 10^3/uL (0.0-0.5); EOS % 1.2 % (0.0-3.0); HEMATOCRIT 41.3 % (42.0-52.0); HEMOGLOBIN 13.6 g/dl (13.5-17.5); LYMPH # 0.9 10^3/uL (1.5-5.0); LYMPH % 10.6 % (24.0-44.0); MEAN CORPUSCULAR HEMOGLOBIN 29.6 pg (27.0-33.0); MEAN CORPUSCULAR HGB CONC 32.9 g/dl (32.0-36.5); MONO # 0.2 10^3/uL (0.0-0.8); NEUTROPHILS # 7.4 10^3/uL (1.5-8.5); NEUTROPHILS % 85.6 % (36.0-66.0); PLATELET COUNT, AUTOMATED 156 10^3/uL (150-450); RED BLOOD COUNT 4.59 10^6/uL (4.30-6.10); WHITE BLOOD COUNT 8.7 10^3/uL (4.0-10.0)
[2020-10-12] MEDS ORDERED: LR 1,000 ML IV SCH (11:55)
[2020-10-12] MEDS ORDERED: METOCLOPRAMIDE INJ 10MG/2ML VIAL (J2765 PER 1) IV PRN (11:55)
[2020-10-12] MEDS ORDERED: fentaNYL 100 MCG/2 ML INJECTION (J3010) IV PRN (11:55)
[2020-10-12 12:13] LABS: BLOOD UREA NITROGEN 13 MG/DL (7-18); CALCIUM LEVEL 8.6 MG/DL (8.5-10.1); CARBON DIOXIDE LEVEL 29 MEQ/L (21-32); CHLORIDE LEVEL 108 MEQ/L (98-107); CREATININE FOR GFR 0.99 MG/DL (0.70-1.30); GLOMERULAR FILTRATION RATE > 60.0 (>60); GLUCOSE, FASTING 126 MG/DL (70-100); POTASSIUM SERUM 4.2 MEQ/L (3.5-5.1); SODIUM LEVEL 140 MEQ/L (136-145)
[2020-10-12] MEDS: HYDROMORPHONE HCL 0.5 MG/ 0.5 ML SYRINGE (J1170 PER 1) IV PRN ×2 (12:30→13:09)
[2020-10-12] MEDS: FENTANYL/BUPIVACAINE/NACL BAG 250 ML EPIDURAL SCH (13:02)
[2020-10-12] MEDS: KCL 20MEQ IN D5/NS 1000ML 1,000 ML IV SCH (13:11)
--- NOTE | 2020-10-12 13:40 | RO ---
OPERATIVE NOTE DATE OF OPERATION: 10/12/2020 PREOPERATIVE DIAGNOSES: 1. Recurrent left pneumothorax. 2. Congenital bleb disease. 3. Distal emphysematous changes, congenital. POSTOPERATIVE DIAGNOSES: 1. Recurrent left pneumothorax. 2. Congenital blood disease. 3. Distal emphysematous changes, congenital. PROCEDURES: 1. Left upper lobe wedge resection. 2. Talc pleurodesis. 3. Bronchoscopy. 4. Five-level rib block. SURGEON: Dr. Avelino Carrasco FINDINGS: The bronchoscopy revealed a normal branching tracheobronchial tree with scant secretions. There are no endobronchial lesions noted. The video-assisted thoracic surgery (VATS) thoracoscopy revealed a small bleb, which looked to be ruptured, in the apex of the left upper lobe. This was resected. The lungs looked fairly pink. There was little anthracotic staining. DESCRIPTION OF PROCEDURE: Under satisfactory general anesthesia and single-lumen tube endotracheal intubation, bronchoscope was passed into the tracheobronchial tree. Each segment and subsegment was thoroughly inspected, and there were no endobronchial lesions seen. Double-lumen was then placed and again confirmed by bronchoscopy. The patient was then turned into the right lateral decubitus position and prepped and draped in the usual sterile fashion. A mid axillary line thoracoscopy incision was made, and a 5 mm port was placed. Initial inspection revealed very pink lungs and no adhesions. A 30-degree scope was placed after placement of an additional port. The ruptured bleb could clearly be seen, and a picture was taken. A 12 mm port was then placed posteriorly in the posterior axillary line. The left upper lobe was seized along with the bleb and a wedge resection undertaken with three firings of the ÓSCAR Crane stapler. Specimen was removed with a plastic catch bag. Talc was then uniformly insufflated throughout the pleural cavity. Two chest tubes were placed, a #24 and #20 curved tube anterior and posterior, respectively. These were secured to the chest wall. Tubes were placed through the 5 mm port incisions. The 12 mm port incision was then closed with running 0 Vicryl suture for the extrathoracic muscles. The subcutaneous tissue was closed with a running 3-0 Vicryl suture, and the skin was closed with a 4-0 Monopril subcuticular suture. Patient tolerated the procedure well and left the operating room under satisfactory condition to the recovery room. Prior to closure, a 5-level rib block consisting of Marcaine and Exparel was instilled below each rib. MTDD
[2020-10-12] MEDS: HEPARIN SOD (PORCINE) 5000UNITS/ML 1ML VIAL/SYRINGE SC SCH ×2 (14:10→21:37)
[2020-10-12] MEDS: PANTOPRAZOLE 40MG TAB (PROTONIX) PO SCH (14:10)
[2020-10-12] MEDS: DOCUSATE SODIUM 100MG CAPSULE PO SCH ×2 (14:10→21:37)
[2020-10-12] MEDS: MOM 30ML SUSPENSION UDC PO SCH (14:10)
[2020-10-12] MEDS: ceFAZolin SOD 1 GM in D5W MINI-BAG PLUS 50 ML IV SCH (18:05)
[2020-10-12] MEDS: SIMVASTATIN 10 MG TAB PO SCH (21:38)
[2020-10-13] VITALS (19 sets, daily range): BP systolic 103–132; BP diastolic 57–77; O2SAT 94–100
[2020-10-13] MEDS: KETOROLAC 30 MG/ML 1ML VIAL IV SCH ×5 (00:23→23:37)
[2020-10-13] MEDS: LEVALBUTEROL 1.25 MG/0.5 ML CONCENTRATE NEB NEB SCH ×4 (01:26→19:56)
[2020-10-13] MEDS: ceFAZolin SOD 1 GM in D5W MINI-BAG PLUS 50 ML IV SCH ×3 (02:06→17:52)
[2020-10-13] MEDS: KCL 20MEQ IN D5/NS 1000ML 1,000 ML IV SCH (03:42)
[2020-10-13 05:44] LABS: HEMATOCRIT 38.9 % (42.0-52.0); HEMOGLOBIN 12.6 g/dl (13.5-17.5); LYMPH % 10.2 % (24.0-44.0); MEAN CORPUSCULAR HEMOGLOBIN 29.2 pg (27.0-33.0); MEAN CORPUSCULAR HGB CONC 32.4 g/dl (32.0-36.5); MONO # 0.6 10^3/uL (0.0-0.8); MONO % 6.3 % (2.0-8.0); NEUTROPHILS # 8.3 10^3/uL (1.5-8.5); NEUTROPHILS % 83.1 % (36.0-66.0); PLATELET COUNT, AUTOMATED 157 10^3/uL (150-450); RED BLOOD COUNT 4.32 10^6/uL (4.30-6.10)
[2020-10-13 05:55] LABS: ABG BASE EXCESS 0.6 (-2.0-2.0); ABG HCO3 25.4 MEQ/L (22.0-26.0); ABG O2 SATURATION 97.8 % (95.0-99.0); ABG PARTIAL PRESSURE CO2 41.4 mmHg (35.0-45.0); ABG PARTIAL PRESSURE O2 95.9 mmHg (75.0-100.0); ABG STANDARD HCO3 25.1 MEQ/L (22.0-26.0); ABG TOTAL CO2 26.7 MEQ/L (22.0-29.0); ABG pH (ARTERIAL) 7.406 UNITS (7.350-7.450)
[2020-10-13 05:58] LABS: BLOOD UREA NITROGEN 12 MG/DL (7-18); CALCIUM LEVEL 8.4 MG/DL (8.5-10.1); CARBON DIOXIDE LEVEL 29 MEQ/L (21-32); CHLORIDE LEVEL 108 MEQ/L (98-107); CREATININE FOR GFR 0.91 MG/DL (0.70-1.30); GLOMERULAR FILTRATION RATE > 60.0 (>60); GLUCOSE, FASTING 118 MG/DL (70-100); POTASSIUM SERUM 4.1 MEQ/L (3.5-5.1); SODIUM LEVEL 141 MEQ/L (136-145)
[2020-10-13] MEDS ORDERED: COVID IM ONE (07:00)
[2020-10-13] MEDS ORDERED: VACC MRNA IM ONE (07:00)
[2020-10-13] MEDS: FENTANYL/BUPIVACAINE/NACL BAG 250 ML EPIDURAL SCH (07:21)
--- NOTE | 2020-10-13 08:06 | REP ---
INDICATION: after chest tube placement. COMPARISON: Comparison chest x-ray October 11 and October 12, 2020. TECHNIQUE: Two views.. FINDINGS: Two left-sided chest tubes are noted in place. There is a surgical suture line at the left apex status post wedge resection. There is a tiny collection of apical pleural air on the left. This is unchanged from yesterday's radiograph. No new infiltrate is seen. Epidural catheter an EKG monitoring electrodes are noted. There is some subcutaneous emphysema in the supraclavicular soft tissues on the left as before. IMPRESSION: Tiny left apical pneumothorax. Two left chest tubes in place.. <Electronically signed by Tanmay Car > 10/13/20 0802
[2020-10-13] MEDS: HEPARIN SOD (PORCINE) 5000UNITS/ML 1ML VIAL/SYRINGE SC SCH ×2 (09:13→21:03)
[2020-10-13] MEDS: DOCUSATE SODIUM 100MG CAPSULE PO SCH ×2 (09:13→21:02)
[2020-10-13] MEDS: MOM 30ML SUSPENSION UDC PO SCH (09:13)
[2020-10-13] MEDS: PANTOPRAZOLE 40MG TAB (PROTONIX) PO SCH (09:13)
[2020-10-13] MEDS ORDERED: SLF 3 ML SYR IV PRN (13:30)
--- NOTE | 2020-10-13 13:58 | IPN ---
PROGRESS NOTE DATE: 10/13/2020 This is now the first postoperative day for Mr. Koenig, who had an uneventful night of surgery. His pain is being well controlled with the epidural catheter. His vital signs show a maximum temperature of 98.8 with a heart rate that ranges between 60-75 in a sinus rhythm, respiratory rate that is constant at 18, who is 95%-100% saturated on room air and whose blood pressure is ranging between 103/57 to 132/71. His intake and output for the past 24 hours has been recorded as 1730 in and 1465 out for a positivity of 265 mL. He has put 66 mL out of the chest tube, and there is no air leak. Weight is pending today. PHYSICAL EXAMINATION: His lungs show equal breath sounds on either side. I hear no wheezes, rhonchi, or rales. In particular, I do not hear a pleural friction rub. Percussion note is full to the diaphragm. Cardiac exam is without murmurs, clicks, gallops, or rubs. I cannot feel his point of maximal impulse (PMI). S1 and S2 are normal. Abdomen is soft and nontender. Bowel sounds are positive. There is no hepatomegaly. No costovertebral angle (CVA) tenderness. Extremities show no pretibial edema, no calf tenderness, no differential swelling of the upper extremities. Skin is warm, dry, and perfused without cyanosis or mottling, including that of the nailbeds and knees. Neck is supple. There is no jugular venous distention. No subcutaneous emphysema. Trachea is midline. Mouth shows the mucous membranes to be pink and moist. Lips and commissures without lesions. No thrush. Eyes show his pupils to be equal and reactive. Extraocular motion intact. Sclerae anicteric. Neurologic shows II-XII intact. Normal gross motor, gross sensation intact. Gait is not tested. Psychiatric shows him to be awake, alert, and oriented times three with appropriate mood and affect and conversational. His white count today is 10.0 with a hemoglobin and hematocrit of 12.6 and 38.9 with a platelet count of 157 and stable. Differential shows 83% neutrophils, 10% lymphocytes, 6% monocytes. There are no immature forms or toxic granulations. Electrolytes are essentially normal with a BUN and creatinine of 12 and 0.91, a glucose of 118, and a calcium of 8.4. His chest x-ray shows his lung fully expanded to the chest wall. Chest tubes are in good place. There are no infiltrates. Costophrenic angles are sharp. IMPRESSION: 1. Spontaneous pneumothorax, left side, third time. 2. Congenital bleb disease. 3. Gastroesophageal reflux disease. 4. Hyperlipidemia. 5. Postoperative day #1 status post talc pleurodesis and wedge resection, left upper lobe. PLAN AND DISCUSSION: I will continue his chest tube on suction today. His pain is being well controlled. He is going to get a COVID vaccination today. I have no objections to that.
[2020-10-13] MEDS: SLF 3 ML SYR IV SCH ×2 (14:00→23:35)
[2020-10-13] MEDS: SIMVASTATIN 10 MG TAB PO SCH (21:02)
[2020-10-14] VITALS (17 sets, daily range): BP systolic 131–148; BP diastolic 70–78; O2SAT 93–100
[2020-10-14] MEDS: LEVALBUTEROL 1.25 MG/0.5 ML CONCENTRATE NEB NEB SCH ×5 (01:01→23:18)
[2020-10-14] MEDS: ceFAZolin SOD 1 GM in D5W MINI-BAG PLUS 50 ML IV SCH ×2 (02:15→10:00)
[2020-10-14] MEDS: FENTANYL/BUPIVACAINE/NACL BAG 250 ML EPIDURAL SCH (04:25)
[2020-10-14] MEDS: ACETAMINOPHEN TAB 650MG DOSE (2X325MG) PO PRN (04:40)
[2020-10-14 06:22] LABS: BASO % 0.6 % (0.0-1.0); EOS # 0.1 10^3/uL (0.0-0.5); HEMATOCRIT 38.5 % (42.0-52.0); HEMOGLOBIN 12.7 g/dl (13.5-17.5); LYMPH # 1.2 10^3/uL (1.5-5.0); LYMPH % 17.3 % (24.0-44.0); MEAN CORPUSCULAR HEMOGLOBIN 29.6 pg (27.0-33.0); MEAN CORPUSCULAR VOLUME 89.7 fl (80.0-96.0); MONO # 0.5 10^3/uL (0.0-0.8); MONO % 7.3 % (2.0-8.0); NEUTROPHILS # 5.1 10^3/uL (1.5-8.5); NEUTROPHILS % 73.5 % (36.0-66.0); PLATELET COUNT, AUTOMATED 140 10^3/uL (150-450); RED BLOOD COUNT 4.29 10^6/uL (4.30-6.10)
[2020-10-14] MEDS: KETOROLAC 30 MG/ML 1ML VIAL IV SCH ×3 (06:39→18:18)
[2020-10-14] MEDS: SLF 3 ML SYR IV SCH ×3 (06:40→22:12)
[2020-10-14 06:41] LABS: BLOOD UREA NITROGEN 14 MG/DL (7-18); CALCIUM LEVEL 8.7 MG/DL (8.5-10.1); CARBON DIOXIDE LEVEL 33 MEQ/L (21-32); CHLORIDE LEVEL 102 MEQ/L (98-107); CREATININE FOR GFR 0.98 MG/DL (0.70-1.30); GLOMERULAR FILTRATION RATE > 60.0 (>60); GLUCOSE, FASTING 91 MG/DL (70-100); POTASSIUM SERUM 4.2 MEQ/L (3.5-5.1); SODIUM LEVEL 139 MEQ/L (136-145)
--- NOTE | 2020-10-14 08:12 | REP ---
INDICATION: after chest tube placement COMPARISON: 10/13/2020 TECHNIQUE: PA and lateral. FINDINGS: Two left-sided chest tubes and pleuroparenchymal changes re-scanned postsurgical changes are stable. No new acute process. IMPRESSION: Stable pleuroparenchymal and postsurgical changes involving the left hemithorax. No new acute process. <Electronically signed by Jarrod Matthew > 10/14/20 0808
[2020-10-14] MEDS: MOM 30ML SUSPENSION UDC PO SCH (09:59)
[2020-10-14] MEDS: HEPARIN SOD (PORCINE) 5000UNITS/ML 1ML VIAL/SYRINGE SC SCH ×2 (09:59→20:06)
[2020-10-14] MEDS: PANTOPRAZOLE 40MG TAB (PROTONIX) PO SCH (10:00)
[2020-10-14] MEDS: DOCUSATE SODIUM 100MG CAPSULE PO SCH ×2 (10:00→20:07)
[2020-10-14] MEDS: SIMVASTATIN 10 MG TAB PO SCH (20:07)
[2020-10-15] VITALS (20 sets, daily range): BP systolic 132–150; BP diastolic 68–78; O2SAT 94–100
[2020-10-15] MEDS: KETOROLAC 30 MG/ML 1ML VIAL IV SCH ×4 (00:18→17:54)
[2020-10-15] MEDS: FENTANYL/BUPIVACAINE/NACL BAG 250 ML EPIDURAL SCH (02:58)
[2020-10-15 05:40] LABS: BASO # 0.1 10^3/uL (0.0-0.2); BASO % 0.9 % (0.0-1.0); EOS # 0.3 10^3/uL (0.0-0.5); HEMATOCRIT 40.3 % (42.0-52.0); HEMOGLOBIN 13.2 g/dl (13.5-17.5); LYMPH # 1.8 10^3/uL (1.5-5.0); LYMPH % 33.8 % (24.0-44.0); MEAN CORPUSCULAR HEMOGLOBIN 29.7 pg (27.0-33.0); MEAN CORPUSCULAR HGB CONC 32.8 g/dl (32.0-36.5); MEAN CORPUSCULAR VOLUME 90.6 fl (80.0-96.0); MONO # 0.7 10^3/uL (0.0-0.8); MONO % 12.4 % (2.0-8.0); NEUTROPHILS # 2.6 10^3/uL (1.5-8.5); NEUTROPHILS % 47.5 % (36.0-66.0); PLATELET COUNT, AUTOMATED 133 10^3/uL (150-450); RED BLOOD COUNT 4.45 10^6/uL (4.30-6.10); WHITE BLOOD COUNT 5.4 10^3/uL (4.0-10.0)
[2020-10-15 05:45] LABS: BLOOD UREA NITROGEN 13 MG/DL (7-18); CALCIUM LEVEL 8.2 MG/DL (8.5-10.1); CARBON DIOXIDE LEVEL 35 MEQ/L (21-32); CHLORIDE LEVEL 103 MEQ/L (98-107); CREATININE FOR GFR 0.94 MG/DL (0.70-1.30); GLOMERULAR FILTRATION RATE > 60.0 (>60); GLUCOSE, FASTING 90 MG/DL (70-100); POTASSIUM SERUM 4.4 MEQ/L (3.5-5.1); SODIUM LEVEL 141 MEQ/L (136-145)
[2020-10-15] MEDS: SLF 3 ML SYR IV SCH ×3 (06:34→22:00)
[2020-10-15] MEDS: LEVALBUTEROL 1.25 MG/0.5 ML CONCENTRATE NEB NEB SCH ×3 (07:04→19:23)
[2020-10-15] MEDS: MOM 30ML SUSPENSION UDC PO SCH (08:09)
[2020-10-15] MEDS: PANTOPRAZOLE 40MG TAB (PROTONIX) PO SCH (08:09)
[2020-10-15] MEDS: DOCUSATE SODIUM 100MG CAPSULE PO SCH ×2 (08:09→21:51)
[2020-10-15] MEDS: HEPARIN SOD (PORCINE) 5000UNITS/ML 1ML VIAL/SYRINGE SC SCH (08:10)
--- NOTE | 2020-10-15 08:11 | IPN ---
PROGRESS NOTE DATE: 10/14/2020 This is now the second postoperative day for Mr. Koenig. His pain is being well controlled with the epidural. He is complaining of some numbness under his arms. I have decreased the epidural from 12 to 10. His vital signs show a maximum temperature of 101.7 with a heart rate that ranges between 83-72 in a sinus rhythm, respiratory rate of 16-18 without the use of accessory muscles, who is 94%-98% saturated on room air, and whose blood pressure is ranging between 131/70 to 140/73. His intake and output for the past 24 hours has been recorded as 4593 in and 4712 out, for a negativity of 119 mL. He has taken in 3470 mL in oral intake and 1100 in intravenous (IV) intake. He has put out 137 mL from the chest tube. There is no air leak. Weigh is pending. PHYSICAL EXAMINATION: His lungs show equal breath sounds on either side. I do not hear a pleural friction rub. Percussion notes are full to the diaphragm. Cardiac exam is without murmurs, clicks, gallops, or rubs. I cannot feel his point of maximal impulse (PMI). S1 and S2 are normal. Abdomen is soft and nontender. Bowel sounds are positive. There is no hepatomegaly. No costovertebral angle (CVA) tenderness. Extremities show no pretibial edema, no calf tenderness, no differential swelling of the upper extremities. Skin is warm, dry, and perfused without cyanosis or mottling, including that of the nailbeds and knees. Neck is supple. There is no jugular venous distention. No subcutaneous emphysema. Trachea is midline. Mouth shows the mucous membranes to be pink and moist. Lips and commissures without lesions. No thrush. Eyes show his pupils to be equal and reactive. Extraocular motion intact. Sclerae anicteric. Neurologic shows II-XII intact. Normal gross motor, gross sensation intact. Gait is not tested. Psychiatric shows him to be awake, alert, and oriented times three with appropriate mood and affect and conversational. His white count today is 7.0 with a hemoglobin and hematocrit of 12.7 and 38.5, respectively, unchanged from yesterday, with a platelet count of 140 and stable. Differential shows 73% neutrophils, 17% lymphocytes, and 7% monocytes. There are no immature forms or toxic granulations. His electrolytes are essentially normally with a marginally elevated CO2 of 33, a BUN and creatinine of 14 and 0.98, a glucose of 91, and a calcium of 8.7. There are no blood gases on him today. His chest x-ray shows his lung fully expanded to the chest wall without infiltrates. Sharp costophrenic angles. Chest tubes are in good place. IMPRESSION: 1. Postoperative day #2 status post wedge resection and talc pleurodesis, left side. 2. Pneumonia pneumothorax, left side, third occurrence. 3. Congenital bleb disease. 4. Gastroesophageal reflux disease (GERD). 5. Hyperlipidemia. PLAN AND DISCUSSION: I will continue his chest tube on suction today, as I will for the next 3 days. As noted above, I will wean the epidural slightly.
--- NOTE | 2020-10-15 08:24 | REP ---
INDICATION: after chest tube placement COMPARISON: 10/14/2020 TECHNIQUE: PA and lateral. FINDINGS: 2 left apical chest tubes are in stable position. Postsurgical pleuroparenchymal changes involving the left hemithorax with suture material at the left apex and possible small residual pneumothorax along with subcutaneous emphysema remain essentially unchanged. No new process appreciated. Right hemithorax is clear. Cardiac silhouette is normal. IMPRESSION: Stable examination. No new acute process appreciated. <Electronically signed by Jarrod Matthew > 10/15/20 [id number]
[2020-10-15] MEDS: SIMVASTATIN 10 MG TAB PO SCH (21:51)
[2020-10-15] MEDS: HEPARIN SOD (PORCINE) 5000UNITS/ML 1ML VIAL/SYRINGE SQ SCH (21:52)
[2020-10-16] VITALS (14 sets, daily range): BP systolic 131–141; BP diastolic 76–83; O2SAT 94–98
[2020-10-16] MEDS: KETOROLAC 30 MG/ML 1ML VIAL IV SCH (01:01)
[2020-10-16] MEDS: LEVALBUTEROL 1.25 MG/0.5 ML CONCENTRATE NEB NEB SCH ×4 (01:08→19:28)
[2020-10-16] MEDS: FENTANYL/BUPIVACAINE/NACL BAG 250 ML EPIDURAL SCH (03:50)
[2020-10-16] MEDS: SLF 3 ML SYR IV SCH ×3 (06:00→21:48)
[2020-10-16 06:06] LABS: BASO % 0.6 % (0.0-1.0); EOS # 0.5 10^3/uL (0.0-0.5); HEMATOCRIT 41.6 % (42.0-52.0); HEMOGLOBIN 13.9 g/dl (13.5-17.5); LYMPH # 1.5 10^3/uL (1.5-5.0); LYMPH % 22.7 % (24.0-44.0); MEAN CORPUSCULAR HEMOGLOBIN 29.8 pg (27.0-33.0); MEAN CORPUSCULAR HGB CONC 33.4 g/dl (32.0-36.5); MEAN CORPUSCULAR VOLUME 89.3 fl (80.0-96.0); MONO # 0.8 10^3/uL (0.0-0.8); MONO % 11.7 % (2.0-8.0); NEUTROPHILS # 3.7 10^3/uL (1.5-8.5); NEUTROPHILS % 57.8 % (36.0-66.0); PLATELET COUNT, AUTOMATED 147 10^3/uL (150-450); RED BLOOD COUNT 4.66 10^6/uL (4.30-6.10); WHITE BLOOD COUNT 6.4 10^3/uL (4.0-10.0)
[2020-10-16 06:27] LABS: BLOOD UREA NITROGEN 19 MG/DL (7-18); CALCIUM LEVEL 8.8 MG/DL (8.5-10.1); CARBON DIOXIDE LEVEL 35 MEQ/L (21-32); CHLORIDE LEVEL 105 MEQ/L (98-107); CREATININE FOR GFR 1.18 MG/DL (0.70-1.30); GLOMERULAR FILTRATION RATE > 60.0 (>60); GLUCOSE, FASTING 99 MG/DL (70-100); POTASSIUM SERUM 5.3 MEQ/L (3.5-5.1); SODIUM LEVEL 140 MEQ/L (136-145)
--- NOTE | 2020-10-16 08:35 | REP ---
INDICATION: after chest tube placement COMPARISON: 10/15/2020 TECHNIQUE: PA and lateral. FINDINGS: Two left-sided chest tubes are again identified in stable position. The left hemithorax demonstrates stable pleuroparenchymal changes without obvious residual pneumothorax. Small amount of subcutaneous emphysema at the left thoracic inlet is unchanged. The mediastinum and cardiac silhouette are normal. The right hemithorax is clear and stable. Skeletal structures are intact. IMPRESSION: 1. Left-sided changes similar to prior examination. No obvious residual left pneumothorax. 2. No new acute process appreciated. <Electronically signed by Jarrod Matthew > 10/16/20 0816
[2020-10-16] MEDS: DOCUSATE SODIUM 100MG CAPSULE PO SCH ×2 (09:15→21:47)
[2020-10-16] MEDS: HEPARIN SOD (PORCINE) 5000UNITS/ML 1ML VIAL/SYRINGE SQ SCH ×2 (09:15→21:48)
[2020-10-16] MEDS: PANTOPRAZOLE 40MG TAB (PROTONIX) PO SCH (09:15)
[2020-10-16] MEDS: MOM 30ML SUSPENSION UDC PO SCH (09:15)
[2020-10-16] MEDS: ACETAMINOPHEN TAB 650MG DOSE (2X325MG) PO PRN ×3 (09:30→19:11)
[2020-10-16] MEDS: ONDANSETRON 4MG/2ML VIAL IV PRN ×2 (09:30→21:47)
[2020-10-16] MEDS: METOCLOPRAMIDE INJ 10MG/2ML VIAL (J2765 PER 1) IV PRN (17:57)
[2020-10-16] MEDS: SIMVASTATIN 10 MG TAB PO SCH (21:47)
[2020-10-17] VITALS (11 sets, daily range): BP systolic 131–153; BP diastolic 77–88; O2SAT 95–97
[2020-10-17] MEDS: ACETAMINOPHEN TAB 650MG DOSE (2X325MG) PO PRN ×2 (00:20→07:08)
[2020-10-17] MEDS: METOCLOPRAMIDE INJ 10MG/2ML VIAL (J2765 PER 1) IV PRN (00:20)
[2020-10-17] MEDS: LEVALBUTEROL 1.25 MG/0.5 ML CONCENTRATE NEB NEB SCH ×4 (02:00→20:15)
[2020-10-17] MEDS: SLF 3 ML SYR IV SCH ×3 (06:00→20:19)
[2020-10-17 06:10] LABS: BASO % 0.5 % (0.0-1.0); EOS # 0.4 10^3/uL (0.0-0.5); EOS % 5.9 % (0.0-3.0); HEMATOCRIT 43.1 % (42.0-52.0); HEMOGLOBIN 14.3 g/dl (13.5-17.5); LYMPH # 1.3 10^3/uL (1.5-5.0); LYMPH % 17.3 % (24.0-44.0); MEAN CORPUSCULAR HEMOGLOBIN 30.1 pg (27.0-33.0); MEAN CORPUSCULAR HGB CONC 33.2 g/dl (32.0-36.5); MEAN CORPUSCULAR VOLUME 90.7 fl (80.0-96.0); MONO # 0.8 10^3/uL (0.0-0.8); MONO % 11.2 % (2.0-8.0); NEUTROPHILS # 4.8 10^3/uL (1.5-8.5); NEUTROPHILS % 64.8 % (36.0-66.0); PLATELET COUNT, AUTOMATED 168 10^3/uL (150-450); RED BLOOD COUNT 4.75 10^6/uL (4.30-6.10); WHITE BLOOD COUNT 7.5 10^3/uL (4.0-10.0)
[2020-10-17 06:35] LABS: CALCIUM LEVEL 8.7 MG/DL (8.5-10.1); CREATININE FOR GFR 1.52 MG/DL (0.70-1.30); GLOMERULAR FILTRATION RATE 53.8 (>60); POTASSIUM SERUM 5.2 MEQ/L (3.5-5.1)
[2020-10-17] MEDS: ONDANSETRON 4MG/2ML VIAL IV PRN (07:03)
--- NOTE | 2020-10-17 08:51 | REP ---
INDICATION: after chest tube placement COMPARISON: 10/16/2020 TECHNIQUE: PA and lateral. FINDINGS: Two left-sided chest tubes possible small residual apical pneumothorax along with small amount of subcutaneous emphysema at the thoracic inlet again noted and similar to prior examinations. Right hemithorax is clear. No new acute process appreciated. Mediastinum and cardiac silhouette normal. Skeletal structures intact. IMPRESSION: Left-sided changes as described above. A small left apical pneumothorax cannot be excluded. No new acute process appreciated. <Electronically signed by Jarrod Matthew > 10/17/20 0826
[2020-10-17] MEDS: HEPARIN SOD (PORCINE) 5000UNITS/ML 1ML VIAL/SYRINGE SQ SCH ×2 (08:59→20:19)
[2020-10-17] MEDS: MOM 30ML SUSPENSION UDC PO SCH (08:59)
[2020-10-17] MEDS: DOCUSATE SODIUM 100MG CAPSULE PO SCH ×2 (08:59→20:18)
[2020-10-17] MEDS: PANTOPRAZOLE 40MG TAB (PROTONIX) PO SCH (08:59)
[2020-10-17] MEDS: D5W/0.9% SODIUM CHLORIDE 1,000 ML IV SCH ×2 (10:08→18:38)
--- NOTE | 2020-10-17 14:12 | IPN ---
PROGRESS NOTE DATE: 10/15/2020 SUBJECTIVE: This is now the third postoperative day for Mr. Koenig. He has had a stable 24 hours and his pain is being well-controlled with the epidural. OBJECTIVE: VITAL SIGNS: Show a T-max of 98.6 with a heart rate that ranges between 54 and 71 in sinus rhythm. Respiratory rate of 17 to 19 without the use of accessory muscles who was 94% to 100% saturated on room air and whose blood pressure is ranging between 150/71 to 132/75. INTAKE AND OUTPUT: Over the past 24 hours has been recorded as 2636 in and 3023 out. He has put out 135 mL from the chest tube and there is no air leak. His intake is mostly from p.o. RESPIRATORY: He has equal breath sounds on either side. Percussion notes are full to the diaphragm. I hear no wheezes, rhonchi, or rales. I do not hear a pleural friction rub at this time. CARDIAC: Without murmurs, clicks, gallops, or rubs. I cannot feel his PMI. S1 and S2 are normal. ABDOMEN: Soft and nontender. Bowel sounds are positive. There is no hepatomegaly. No CVA tenderness. EXTREMITIES: Show no pretibial edema. No calf tenderness. No differential swelling of the upper extremities. SKIN: Warm, dry, and perfused without cyanosis or mottling, including that of the nail beds and knees. NECK: Supple. There is no jugular venous distention. No subcutaneous emphysema. Trachea is midline. MOUTH: Shows the mucous membranes to be pink and moist. Lips and commisures are without lesions and no thrush. EYES: Show his pupils equal and reactive. Extraocular movements are intact. Sclerae nonicteric. NEUROLOGIC: Shows II through XII intact. Normal gross motor, gross sensation intact. Gait is not tested. PSYCHIATRIC: Shows him to be awake, alert, and oriented x3 with appropriate mood and affect and conversational. LABORATORY DATA: His white count today is 5.4 with hemoglobin and hematocrit of 13.2 and 40.3 up from 12.7 and 38.5 yesterday. Platelet count is 133,000 and stable. Differential shows 47% neutrophils, 33% lymphocytes, and 12% monocytes. There are no immature forms and no toxic granulations. Electrolytes are essentially normal with an increased total CO2 of 35. BUN and creatinine are 13. and 0.94 with a glucose of 90 and calcium 8.2. IMAGING DATA: Chest x-ray today shows his lungs fully expand to the chest wall. Costophrenic angles are sharp. There are no infiltrates. Chest tubes are in good place. There is no subcutaneous emphysema. IMPRESSION: 1. Postoperative day #3 status post left upper lobe wedge resection and talc pleurodesis. 2. Spontaneous pneumothorax left side third occurrence. 3. Congenital bleb disease. 4. Gastroesophageal reflux disease (GERD). 5. Hyperlipidemia. PLAN AND DISCUSSION: I will continue his chest tubes on suction today. I will discontinue his chest tube suction tomorrow and remove the chest tubes the next day with discharge the following day.
[2020-10-17] MEDS: PERCOCET 5MG/325MG TAB PO PRN ×3 (14:37→22:39)
--- NOTE | 2020-10-17 17:07 | IPN ---
PROGRESS NOTE DATE: 10/16/2020 SUBJECTIVE: Mr. Koenig does not feel all that well today. He has some nausea and vague abdominal pain. OBJECTIVE: VITAL SIGNS: Show a T-max of 98.3. Respiratory rate varies between 15 and 18. He is 94% to 95% saturated on room air. Pulse varies between 62 and 77 in a sinus rhythm. Blood pressure is ranging between 141/80 to 131/77. INTAKE AND OUTPUT: Over the past 24 hours has been recorded as 3917 in and 3730 out for a positivity of 187 mL. He has put out 80 mL from the chest tube. He weighs 77 kg today compared to 78.9 kg on 10/12. There is no air leak. RESPIRATORY: His lungs show equal breath sounds on either side. Today I hear a pleural friction rub on the left side. Percussion note is full to the diaphragm. CARDIAC: Without murmurs, clicks, gallops, or rubs. I cannot feel his PMI. S1 and S2 are normal. ABDOMEN: Soft and nontender. Bowel sounds are positive. There is no hepatomegaly. No CVA tenderness. EXTREMITIES: Show no pretibial edema. No calf tenderness. No differential swelling of the upper extremities. SKIN: Warm, dry, and perfused without cyanosis or mottling, including that of the nail beds and knees. NECK: Supple. There is no jugular venous distention. No subcutaneous emphysema. Trachea is midline. MOUTH: Shows the mucous membranes to be pink and moist. Lips and commisures are without lesions and no thrush. EYES: Show his pupils equal and reactive. Extraocular movements are intact. Sclerae nonicteric. NEUROLOGIC: Shows II through XII intact. Normal gross motor, gross sensation intact. Gait is not tested. PSYCHIATRIC: Shows him to be awake, alert, and oriented x3 with appropriate mood and affect and conversational. LABORATORY DATA: His white count is 6.4 with a hemoglobin and hematocrit of 13.9 and 41.6 respectively with a platelet count of 147,000. Differential shows 57% neutrophils, 22% lymphocytes, and 11% monocytes. There are no immature forms and no toxic granulations. Electrolytes essentially normal with a potassium of 5.3. Total CO2 is 35. His BUN and creatinine is 19 and 1.18. Glucose is 99 with a calcium of 8.8. He is not receiving any potassium supplementation. I will discontinue his Toradol, however, as his creatinine has bumped up to 1.18. IMAGING DATA: His chest x-ray shows his lungs fully expand to the chest wall. There is no subcutaneous emphysema. Costophrenic angles are sharp. There are no infiltrates. IMPRESSION: 1. Postoperative day #4 status post wedge resection and talc pleurodesis. 2. Spontaneous pneumothorax left side third occurrence. 3. Congenital bleb disease. 4. Gastroesophageal reflux disease. 5. Hyperlipidemia. PLAN AND DISCUSSION: I will wean his epidural from 10 to 5 mL as his pain is almost nonexistent. If he tolerates his epidural decrease, I will discontinue his Julien. I will also discontinue his Toradol. I think that the general ill feeling is secondary to the inflammatory response from the talc. I am going to discontinue his suction today and hopefully remove his chest tubes in the morning.
--- NOTE | 2020-10-17 17:50 | IPN ---
PROGRESS NOTE DATE: 10/17/2020 SUBJECTIVE: This is now the fifth postoperative day for Mr. Koenig. His pain is being fairly well-controlled with the epidural. He is feeling better than he did yesterday without the nausea. OBJECTIVE: VITAL SIGNS: Show a T-max of 97.8 with a heart rate that ranges between 60 and 72 in sinus rhythm. Respiratory rate of 16 to 20 without the use of accessory muscles who is 95% to 98% saturated on room air and whose blood pressure is ranging between 153/88 to 131/79. INTAKE AND OUTPUT: Over the past 24 hours has been recorded as 1560 in and 3365 out for a negativity of 1800 mL. He has had 3300 mL out in urine and 65 mL from the chest tube. He has not had any Lasix for diuresis and this represents a spontaneous diuresis. He weighs 75.4 kg today compared to 77.7 kg yesterday. RESPIRATORY: His lungs show equal breath sounds on either side. I hear a vague pleural friction rub towards the end of inspiration on the left side. Percussion notes are full to the diaphragm. CARDIAC: Without murmurs, clicks, gallops, or rubs. I cannot feel his PMI. S1 and S2 are normal. ABDOMEN: Soft and nontender. Bowel sounds are positive. There is no hepatomegaly. No CVA tenderness. EXTREMITIES: Show no pretibial edema. No calf tenderness. No differential swelling of the upper extremities. SKIN: Warm, dry, and perfused without cyanosis or mottling, including that of the nail beds and knees. NECK: Supple. There is no jugular venous distention. No subcutaneous emphysema. Trachea is midline. MOUTH: Shows the mucous membranes to be pink and moist. Lips and commisures are without lesions and no thrush. EYES: Show his pupils equal and reactive. Extraocular movements are intact. Sclerae nonicteric. NEUROLOGIC: Shows II through XII intact. Normal gross motor, gross sensation intact. Gait is also intact. PSYCHIATRIC: Shows him to be awake, alert, and oriented x3 with appropriate mood and affect and conversational. LABORATORY DATA: His white count today is 7.5 with hemoglobin and hematocrit of 14.3 and 43.1 up from 13.9 and 41.6 probably secondary to hemoconcentration from his spontaneous diuresis. Platelet count is 168,000 with differential that shows 64% neutrophils, 17% lymphocytes, and 11% monocytes. There are no immature forms and no toxic granulations. His chemistries today still show an elevated potassium of 5.2, but with a BUN and creatinine now which is up to 22 and 1.52 from 19 and 1.18 yesterday and 13 and 0.94 the day before. Glucose is 101 with a calcium of 8.7. IMAGING DATA: His chest x-ray shows his lungs fully expand to the chest wall. There are no infiltrates. Costophrenic angles are sharp and chest tubes are in good place. I do not see any posterior infiltrates on the lateral film. IMPRESSION: 1. Postoperative day #5 status post talc pleurodesis and wedge resection. 2. Spontaneous pneumothorax left side third occurrence. 3. Congenital bleb disease. 4. Gastroesophageal reflux disease. 5. Hyperlipidemia. 6. Transient renal insufficiency secondary to volume depletion. PLAN AND DISCUSSION: I will remove his chest tubes today. We will wean his epidural. His Julien is already out. He has no problem urinating. We will treat his pain with oral medications. His Toradol was discontinued yesterday. I think that the bump in his creatinine and BUN and also his H&H are all secondary to hemoconcentration and he is a bit intravascularly depleted, and I will therefore start an IV at 100 mL/hour. I will tentatively plan him for discharge in the morning.
[2020-10-17] MEDS: SIMVASTATIN 10 MG TAB PO SCH (20:18)
[2020-10-18 00:20] VITALS: BP 128/66; O2SAT 95
[2020-10-18] MEDS: LEVALBUTEROL 1.25 MG/0.5 ML CONCENTRATE NEB NEB SCH ×4 (01:06→20:09)
[2020-10-18 04:19] VITALS: O2SAT 95
[2020-10-18] MEDS: PERCOCET 5MG/325MG TAB PO PRN ×5 (04:19→21:57)
[2020-10-18] MEDS: D5W/0.9% SODIUM CHLORIDE 1,000 ML IV SCH ×2 (04:28→15:09)
[2020-10-18] MEDS: SLF 3 ML SYR IV SCH ×3 (05:24→22:00)
[2020-10-18 06:15] LABS: BASO # 0.1 10^3/uL (0.0-0.2); BASO % 0.8 % (0.0-1.0); EOS # 0.5 10^3/uL (0.0-0.5); EOS % 8.1 % (0.0-3.0); LYMPH # 1.4 10^3/uL (1.5-5.0); LYMPH % 21.4 % (24.0-44.0); MEAN CORPUSCULAR HEMOGLOBIN 29.6 pg (27.0-33.0); MEAN CORPUSCULAR HGB CONC 32.5 g/dl (32.0-36.5); MEAN CORPUSCULAR VOLUME 91.1 fl (80.0-96.0); MONO # 0.7 10^3/uL (0.0-0.8); MONO % 11.7 % (2.0-8.0); NEUTROPHILS # 3.6 10^3/uL (1.5-8.5); NEUTROPHILS % 57.5 % (36.0-66.0); PLATELET COUNT, AUTOMATED 170 10^3/uL (150-450); RED BLOOD COUNT 4.39 10^6/uL (4.30-6.10); WHITE BLOOD COUNT 6.3 10^3/uL (4.0-10.0)
[2020-10-18 06:28] LABS: CALCIUM LEVEL 8.1 MG/DL (8.5-10.1); CREATININE FOR GFR 1.73 MG/DL (0.70-1.30); GLOMERULAR FILTRATION RATE 46.3 (>60); POTASSIUM SERUM 4.6 MEQ/L (3.5-5.1)
[2020-10-18 07:58] VITALS: BP 149/77
--- NOTE | 2020-10-18 08:54 | REP ---
INDICATION: after chest tube placement COMPARISON: 10/17/2020 TECHNIQUE: PA and lateral. FINDINGS: Left-sided chest tubes have been removed. Very subtle pleuroparenchymal changes at the left apex and small amount of subcutaneous emphysema at the thoracic inlet again noted and unchanged. Lung eller are otherwise stable and without new acute process. Mediastinum and cardiac silhouette normal. IMPRESSION: 1. Left-sided chest tubes removed. Stable appearance to the pleuroparenchymal changes at the left apex. 2. No new acute process. <Electronically signed by Jarrod Matthew > 10/18/20 0834
[2020-10-18] MEDS: MOM 30ML SUSPENSION UDC PO SCH (09:00)
[2020-10-18] MEDS: HEPARIN SOD (PORCINE) 5000UNITS/ML 1ML VIAL/SYRINGE SQ SCH ×2 (09:56→21:56)
[2020-10-18] MEDS: DOCUSATE SODIUM 100MG CAPSULE PO SCH ×2 (09:56→21:57)
[2020-10-18] MEDS: PANTOPRAZOLE 40MG TAB (PROTONIX) PO SCH (09:56)
--- NOTE | 2020-10-18 10:41 | IPN ---
PROGRESS NOTE DATE: 10/18/2020 SUBJECTIVE: This is now the sixth postoperative day for Mr. Koenig. My intention was to send him home today; however, his creatinine continues to climb. I am still going to continue to hydrate him. His pain is being well-controlled with oral medication. OBJECTIVE: VITAL SIGNS: Show a T-max of 97.5 with a heart rate that ranges between 59 and 76 in sinus rhythm. Respiratory rate of 16 who is 95% saturated on room air and whose blood pressure is ranging between 128/66 to 150/77. INTAKE AND OUTPUT: Over the past 24 hours has been recorded as 3240 in and 1508 out for a positivity of 1700 mL. He has taken in 2840 mL in oral intake and 400 in IV. I actually question whether that is correct as his IV is going at 100 mL/hour. RESPIRATORY: His lungs show breath sounds on either side. I hear no wheezes, rhonchi, or rales. Percussion notes are full to the diaphragm. CARDIAC: Without murmurs, clicks, gallops, or rubs. I cannot feel his PMI. S1 and S2 are normal. ABDOMEN: Soft and nontender. Bowel sounds are positive. There is no hepatomegaly. No CVA tenderness. EXTREMITIES: Show no pretibial edema. No calf tenderness. No differential swelling of the upper extremities. SKIN: Warm, dry, and perfused without cyanosis or mottling, including that of the nail beds and knees. NECK: Supple. There is no jugular venous distention. No subcutaneous emphysema. Trachea is midline. MOUTH: Shows the mucous membranes to be pink and moist. Lips and commisures are without lesions and no thrush. EYES: Show his pupils equal and reactive. Extraocular movements are intact. Sclerae nonicteric. NEUROLOGIC: Shows II through XII intact. Normal gross motor, gross sensation intact. Gait is not tested. PSYCHIATRIC: Shows him to be awake, alert, and oriented x3 with appropriate mood and affect and conversational. LABORATORY DATA: His white count today is 6.3 with a hemoglobin and hematocrit of 13.0 and 40.0 down from 14.3 and 43.1 yesterday secondary to hemodilution. Platelet count is 170,000 and stable and differential shows 57% neutrophils, 21% lymphocytes, and 11% monocytes. There are no immature forms and no toxic granulations. His chemistries today show normal electrolytes with a marginally high total CO2 of 33 with a BUN and creatinine of 23 and 1.73 compared to 22 and 1.52 yesterday. Glucose is 99 with a calcium of 8.1. IMAGING DATA: His chest x-ray is pending today and I will review it later this morning. IMPRESSION: 1. Postoperative day #6 status post wedge resection and talc pleurodesis. 2. Spontaneous pneumothorax left side third occurrence. 3. Congenital bleb disease. 4. Gastroesophageal reflux disease. 5. Hyperlipidemia. 6. Transient renal insufficiency secondary to volume depletion continuing. PLAN AND DISCUSSION: Because his creatinine climbed today, I am going to hydrate him another day rather than discharge him. I will continue to follow his lab results, as well as his x-rays. His Toradol was discontinued two days ago when his creatinine starting to climb to 1.1.
[2020-10-18 12:00] VITALS: BP 149/81
[2020-10-18 15:54] VITALS: BP 148/77
[2020-10-18 20:00] VITALS: BP 157/82
[2020-10-18] MEDS: SIMVASTATIN 10 MG TAB PO SCH (21:56)
[2020-10-19] VITALS: BP 135/76
[2020-10-19] MEDS: D5W/0.9% SODIUM CHLORIDE 1,000 ML IV SCH (00:34)
[2020-10-19] MEDS: LEVALBUTEROL 1.25 MG/0.5 ML CONCENTRATE NEB NEB SCH ×2 (01:18→07:07)
[2020-10-19 04:00] VITALS: BP 153/82
[2020-10-19] MEDS: SLF 3 ML SYR IV SCH (05:28)
[2020-10-19 05:57] LABS: BASO % 0.7 % (0.0-1.0); EOS # 0.5 10^3/uL (0.0-0.5); EOS % 8.9 % (0.0-3.0); HEMATOCRIT 39.2 % (42.0-52.0); HEMOGLOBIN 12.5 g/dl (13.5-17.5); LYMPH # 1.5 10^3/uL (1.5-5.0); LYMPH % 28.1 % (24.0-44.0); MEAN CORPUSCULAR HEMOGLOBIN 29.1 pg (27.0-33.0); MEAN CORPUSCULAR HGB CONC 31.9 g/dl (32.0-36.5); MEAN CORPUSCULAR VOLUME 91.4 fl (80.0-96.0); MONO # 0.5 10^3/uL (0.0-0.8); MONO % 9.1 % (2.0-8.0); NEUTROPHILS # 2.9 10^3/uL (1.5-8.5); NEUTROPHILS % 52.8 % (36.0-66.0); PLATELET COUNT, AUTOMATED 167 10^3/uL (150-450); RED BLOOD COUNT 4.29 10^6/uL (4.30-6.10); WHITE BLOOD COUNT 5.5 10^3/uL (4.0-10.0)
[2020-10-19 06:21] LABS: CALCIUM LEVEL 8.3 MG/DL (8.5-10.1); CREATININE FOR GFR 1.74 MG/DL (0.70-1.30); POTASSIUM SERUM 4.6 MEQ/L (3.5-5.1)
[2020-10-19 08:00] VITALS: BP 166/82
[2020-10-19] MEDS ORDERED: PERCOCET PO (08:37)
--- NOTE | 2020-10-19 08:48 | REP ---
INDICATION: after chest tube placement. COMPARISON: Comparison chest x-ray October 17, 2020 and October 18, 2020. TECHNIQUE: Two views.. FINDINGS: EKG monitoring electrodes are seen. Suture line is again noted in the apex. There is a decreased amount of subcutaneous air in the supraclavicular soft tissues on the left. There is a small air density the medial lung apex which may be a tiny residual apical pneumothorax. This appears less prominent today. Right lung and the remainder of the left lung are clear. The pleural angles are sharp. Heart is not enlarged. IMPRESSION: Tiny decreasing left apical pneumothorax. Suture line visible at the left lung apex as well. Otherwise no acute disease.. <Electronically signed by Tanmay Car > 10/19/20 [id number]
[2020-10-19] MEDS: PERCOCET 5MG/325MG TAB PO PRN (08:51)
[2020-10-19] MEDS: DOCUSATE SODIUM 100MG CAPSULE PO SCH (08:52)
[2020-10-19] MEDS: PANTOPRAZOLE 40MG TAB (PROTONIX) PO SCH (08:52)
[2020-10-19] MEDS: MOM 30ML SUSPENSION UDC PO SCH (08:52)
[2020-10-19] MEDS: HEPARIN SOD (PORCINE) 5000UNITS/ML 1ML VIAL/SYRINGE SQ SCH (08:53)
--- NOTE | 2020-10-19 14:53 | DSES ---
DISCHARGE SUMMARY DATE OF ADMISSION: 10/10/2020 DATE OF DISCHARGE: 10/19/2020 DISCHARGE DIAGNOSES: 1. Spontaneous pneumothorax, left side, third recurrence. 2. Congenital bleb disease. 3. Gastroesophageal reflux disease. 4. Hyperlipidemia. 5. Transient renal insufficiency secondary to volume depletion. 6. Postoperative day #7 status post wedge resection and talc pleurodesis. HOSPITAL COURSE: Patient is a 40-year-old white male who presented to the emergency room on 10/10/2020 with acute shortness of breath, chest pain, and chest x-ray showed left-sided pneumothorax. He was playing soccer earlier in the day, was knocked to the ground, and suddenly felt chest pain and shortly thereafter shortness of breath. He has had two previous pneumothoraces on his left, and he stated that the pain and shortness of breath were the same that he had in 2011 and 2015. Prior to the incident, there was no cough, no fever, chills, or sweats, no sputum production, no chest pain. Chest tube was placed, and as this was his third recurrent he was taken to the operating room after placement of a chest tube that night on 10/12/2020 and underwent a resection of blebs at the apex of the left upper lobe and a talc pleurodesis. He had a benign postoperative course until about postoperative day #5, when I noted that his creatinine slightly increased, although within normal limits. At that point in time, his Toradol was discontinued, but the next day his creatinine oumar to 1.5. It oumar again the following day to 1.73 and then plateaued the day of discharge at 1.74. He had an unexplained spontaneous diuresis without the use of diuretics. It was probably secondary to the inflammatory response from the talc. He is being discharged home today on his home medications, which include pantoprazole 40 mg daily, simvastatin 5 mg every night, and Percocet 5/325 every 4 hours as needed for pain. He is to return to see me in 1 week with a chest x-ray and a basic metabolic panel to include a BUN and creatinine. He has also been advised to take Tylenol for supplemental pain control but not nonsteroidal anti-inflammatory drugs (NSAIDs). His electrolytes on discharge show a sodium 145 and a potassium 4.6 with a total CO2 of 33 and a BUN and creatinine of 19 and 1.74. Calcium 8.3. His white count is 5.5 with a hemoglobin and hematocrit of 12.5 and 39.2, respectively, with a platelet count of 167. Chest x-ray shows his lung fully expanded to the chest wall with sharp costophrenic angles.
== END 2020-10-19 11:08 | disposition home or self-care (01) | DRG 121 ==
LOC: M ED 20:31 → M ED INP 21:14 → ENRESERV 21:20 → M PCU 21:46 → M RR INP 10-12 12:23 → M PCU 10-12 13:16
PROVIDERS: ADMIT Thoracic Surgery (Cardiothoracic Vascular Surgery); ATTEND Thoracic Surgery (Cardiothoracic Vascular Surgery)
PROC: 0W9B30Z Drainage of Left Pleural Cavity with Drainage Device, Percutaneous Approach (ICD-10-PCS; principal; 2020-10-10)
PROC: 0BB Respiratory System, Excision (ICD-10-PCS; 2020-10-12)
PROC: 3E0L3GC Introduction of Other Therapeutic Substance into Pleural Cavity, Percutaneous Approach (ICD-10-PCS; 2020-10-12)
DX: J98.11 Atelectasis (principal); J93.83 Other pneumothorax; K21.9 Gastro-esophageal reflux disease without esophagitis; E78.5 Hyperlipidemia, unspecified

== ENCOUNTER → 2020-10-22 | Outpatient (CLI) | payer BC ==
[~2020-10-22] MED LIST changes: +PANT40TA29 PO; +PERCOCET PO; +SIMV10TA21 PO
--- NOTE | 2020-10-22 09:17 | REP ---
INDICATION: SPONTANEOUS PNEUMOTHORAX. COMPARISON: Comparison chest x-ray October 19, 2020. TECHNIQUE: Three views... FINDINGS: There is a surgical suture line in the left lung apex again noted. There is a tiny bubble of air adjacent to the suture line in the left apex yet again decreased from October 18 and October 19, 2020 study. Pleural angles are sharp. Lung eller are otherwise clear. Heart is not enlarged. Pulmonary vasculature is not increased. No acute bony abnormality is seen. IMPRESSION: Postoperative suture line left lung apex with a tiny sliver of apical pleural air adjacent, decreased from prior study.. <Electronically signed by Tanmay Car > 10/22/20 [id number]
[2020-10-22 12:34] LABS: BLOOD UREA NITROGEN 28 MG/DL (7-18); CALCIUM LEVEL 9.2 MG/DL (8.5-10.1); CARBON DIOXIDE LEVEL 32 MEQ/L (21-32); CHLORIDE LEVEL 105 MEQ/L (98-107); CREATININE FOR GFR 1.27 MG/DL (0.70-1.30); GLOMERULAR FILTRATION RATE > 60.0 (>60); GLUCOSE, FASTING 77 MG/DL (70-100); POTASSIUM SERUM 5.1 MEQ/L (3.5-5.1); SODIUM LEVEL 141 MEQ/L (136-145)
== END ==
LOC: M WUC 08:37
PROVIDERS: ATTEND Thoracic Surgery (Cardiothoracic Vascular Surgery)
DX: N18.9 Chronic kidney disease, unspecified (principal); J93.11 Primary spontaneous pneumothorax

== ENCOUNTER → 2021-09-26 | Outpatient (REF) | payer BC ==
[2021-09-26 11:35] LABS: ALBUMIN 3.9 GM/DL (3.2-5.2); ALT/SGPT 42 U/L (12-78); BILIRUBIN,TOTAL 0.5 MG/DL (0.2-1.0); BLOOD UREA NITROGEN 16 MG/DL (7-18); CALCIUM LEVEL 9.1 MG/DL (8.5-10.1); CARBON DIOXIDE LEVEL 34 MEQ/L (21-32); CHLORIDE LEVEL 105 MEQ/L (98-107); CHOLESTEROL LEVEL 178 MG/DL (<200); CHOLESTEROL RISK RATIO 3.068 (<5); CREATININE FOR GFR 0.98 MG/DL (0.70-1.30); GLOMERULAR FILTRATION RATE > 60.0 (>60); GLUCOSE, FASTING 79 MG/DL (70-100); HDL CHOLESTEROL 58 MG/DL (>40); LDL CHOLESTEROL 89 MG/DL (<100); NON-HDL-C 120 MG/DL; POTASSIUM SERUM 4.7 MEQ/L (3.5-5.1); SODIUM LEVEL 140 MEQ/L (136-145); TRIGLYCERIDES LEVEL 157 MG/DL (<150)
== END ==
LOC: M SFHCCLAY 07:46
PROVIDERS: ATTEND Family Medicine
DX: E78.2 Mixed hyperlipidemia (principal)

== ENCOUNTER → 2022-11-10 | Outpatient (CLI) | payer OTHER | LOC: M PLAIMG 13:28 | PROVIDERS: ATTEND Internal Medicine Pulmonary Disease | DX: R91.8 Other nonspecific abnormal finding of lung field (principal); K76.9 Liver disease, unspecified ==

== ENCOUNTER → 2022-12-01 | Outpatient (CLI) | payer OTHER ==
[2022-12-01 17:24] LABS: ALBUMIN 4.2 G/DL (3.2-5.2); ALKALINE PHOSPHATASE 74 U/L (46-116); ALT/SGPT 48 U/L (7.0-40); AST/SGOT 29 U/L (<34); BILIRUBIN,TOTAL 0.4 MG/DL (0.3-1.2); BLOOD UREA NITROGEN 21 MG/DL (9-23); CALCIUM LEVEL 9.2 MG/DL (8.5-10.1); CARBON DIOXIDE LEVEL 30 MMOL/L (20-31); CHLORIDE LEVEL 105 MMOL/L (98-107); CHOLESTEROL LEVEL 183 MG/DL (<200); CHOLESTEROL RISK RATIO 3.19 (<5); CREATININE FOR GFR 1.04 MG/DL (0.70-1.30); GLOMERULAR FILTRATION RATE > 60.0 (>60); GLUCOSE, FASTING 82 MG/DL (60-100); HDL CHOLESTEROL 57.3 MG/DL (>40); LDL CHOLESTEROL 110.9 MG/DL (<100); NON-HDL-C 125.7 MG/DL; POTASSIUM SERUM 4.1 MMOL/L (3.5-5.1); SODIUM LEVEL 141 MMOL/L (136-145); TOTAL PROTEIN 6.8 G/DL (5.7-8.2); TRIGLYCERIDES LEVEL 74 MG/DL (<150)
== END ==
LOC: M WUC 13:00
PROVIDERS: ATTEND Family Medicine
DX: E78.2 Mixed hyperlipidemia (principal)

== ENCOUNTER → 2023-03-16 | Outpatient (CLI) | payer OTHER | LOC: M PLAIMG 12:56 | PROVIDERS: ATTEND Internal Medicine Pulmonary Disease | DX: R91.8 Other nonspecific abnormal finding of lung field (principal); J93.83 Other pneumothorax ==

== ENCOUNTER → 2023-12-11 | Outpatient (REF) | payer OTHER ==
[~2023-12-11] MED LIST changes: +MECL-209 PO; -MECL1TAB31 PO
[2023-12-11 12:22] LABS: ALBUMIN 3.5 G/DL (3.2-5.2); ALKALINE PHOSPHATASE 79 U/L (46-116); ALT/SGPT 37 U/L (7.0-40); AST/SGOT 26 U/L (<34); BILIRUBIN,TOTAL 0.5 MG/DL (0.3-1.2); BLOOD UREA NITROGEN 18 MG/DL (9-23); CARBON DIOXIDE LEVEL 32 MMOL/L (20-31); CHLORIDE LEVEL 105 MMOL/L (98-107); CHOLESTEROL LEVEL 224 MG/DL (<200); CHOLESTEROL RISK RATIO 4.35 (<5); CREATININE FOR GFR 0.95 MG/DL (0.70-1.30); GLOMERULAR FILTRATION RATE > 60.0 (>60); GLUCOSE, FASTING 68 MG/DL (60-100); HDL CHOLESTEROL 51.4 MG/DL (>40); LDL CHOLESTEROL 146.8 MG/DL (<100); MAGNESIUM LEVEL 1.8 MG/DL (1.8-2.4); NON-HDL-C 172.6 MG/DL; POTASSIUM SERUM 4.4 MMOL/L (3.5-5.1); SODIUM LEVEL 143 MMOL/L (136-145); TOTAL PROTEIN 6.4 G/DL (5.7-8.2); TRIGLYCERIDES LEVEL 129 MG/DL (<150)
== END ==
LOC: M SFHCCLAY 07:43
PROVIDERS: ATTEND Family Medicine
DX: E78.2 Mixed hyperlipidemia (principal); K21.9 Gastro-esophageal reflux disease without esophagitis

== ENCOUNTER → 2024-12-11 | Outpatient (REF) | payer BC ==
[2024-12-11 12:52] LABS: BASO # 0.1 10^3/uL (0.0-0.2); EOS # 0.2 10^3/uL (0.0-0.5); EOS % 2.8 % (0.0-3.0); HEMATOCRIT 48.2 % (42.0-52.0); HEMOGLOBIN 16.5 g/dl (13.5-17.5); LYMPH # 1.9 10^3/uL (1.5-5.0); LYMPH % 30.4 % (24.0-44.0); MEAN CORPUSCULAR HEMOGLOBIN 30.1 pg (27.0-33.0); MEAN CORPUSCULAR HGB CONC 34.2 g/dl (32.0-36.5); MEAN CORPUSCULAR VOLUME 87.8 fl (80.0-96.0); MONO # 0.4 10^3/uL (0.0-0.8); MONO % 6.5 % (2.0-8.0); NEUTROPHILS # 3.6 10^3/uL (1.5-8.5); NEUTROPHILS % 59.1 % (36.0-66.0); PLATELET COUNT, AUTOMATED 217 10^3/uL (150-450); RED BLOOD COUNT 5.49 10^6/uL (4.30-6.10); WHITE BLOOD COUNT 6.1 10^3/uL (4.0-10.0)
[2024-12-11 12:57] LABS: ERYTHROCYTE SEDIMENTATION RATE 14 mm/hr (0-15)
[2024-12-11 12:59] LABS: THYROID STIMULATING HORMONE 0.954 uIU/ML (0.55-4.78)
[2024-12-11 13:00] LABS: FREE T4 1.39 NG/DL (0.89-1.76)
[2024-12-11 13:01] LABS: ALBUMIN 4.2 G/DL (3.2-5.2); ALKALINE PHOSPHATASE 85 U/L (40-129); ALT/SGPT 63 U/L (7.0-40); AST/SGOT 34 U/L (<34); BILIRUBIN,TOTAL 0.6 MG/DL (0.3-1.2); BLOOD UREA NITROGEN 18 MG/DL (9-23); C REACTIVE PROTEIN QUANTITATIV < 0.50 MG/DL (<1.0); CALCIUM LEVEL 9.7 MG/DL (8.5-10.1); CARBON DIOXIDE LEVEL 34 MMOL/L (20-31); CHLORIDE LEVEL 103 MMOL/L (98-107); CHOLESTEROL LEVEL 207 MG/DL (<200); CHOLESTEROL RISK RATIO 4.09 (<5); CREATININE FOR GFR 0.92 MG/DL (0.70-1.30); GLOMERULAR FILTRATION RATE > 90.0 (>60); GLUCOSE, FASTING 87 MG/DL (60-100); HDL CHOLESTEROL 50.6 MG/DL (>40); MAGNESIUM LEVEL 2.1 MG/DL (1.8-2.4); NON-HDL-C 156.4 MG/DL; POTASSIUM SERUM 4.8 MMOL/L (3.5-5.1); SODIUM LEVEL 144 MMOL/L (136-145); TOTAL PROTEIN 7.3 G/DL (5.7-8.2); TRIGLYCERIDES LEVEL 97 MG/DL (<150)
[2024-12-11 13:05] LABS: TOTAL T3 108.4 NG/DL (60.0-181.0)
[2024-12-11 13:24] LABS: HIV 1&2 SCREEN NEGATIVE (NEGATIVE)
[2024-12-11 13:32] LABS: HEPATITIS C VIRUS ABY INDEX 0.08 INDEX (<0.8)
[2024-12-12 18:07] LABS: ANA SCREEN, IFA NEGATIVE (NEGATIVE)
== END ==
LOC: M SFHCCLAY 08:02
PROVIDERS: ATTEND Family Medicine
DX: E78.2 Mixed hyperlipidemia (principal); K21.9 Gastro-esophageal reflux disease without esophagitis; R68.89 Other general symptoms and signs; I73.00 Raynaud's syndrome without gangrene